=== PATIENT | male | born 1955 | race Caucasian/White ===

== ENCOUNTER 2018-12-17 10:26 | Inpatient (IN) | payer BC ==
[~2018-12-17] VITALS: Ht 180.3 cm; Wt 100.1 kg
[2018-12-17] VITALS (7 sets, daily range): BP systolic 102–136; BP diastolic 64–85
--- NOTE | 2018-12-17 10:43 | NUR ---
THIS IS A 62 YEAR ODL MALE WHO C/O OF LIGHTHEADNESS AND FEELING TIRED. SOB X 1. WAS AT URGENT CARE, HERE FOR A FIB, HX OF SD X 3 STENTS. PT PLACED ON VISITING NURSE, CONTINOUS SP02 AND CYCLE VS.
[2018-12-17] MEDS ORDERED: ASPI325T17 PO (10:46)
[2018-12-17] MEDS ORDERED: DILTIAZEM 125 MG in DEXTROSE 5% 100 ML IV SCH (11:24)
[2018-12-17] MEDS ORDERED: DILTIAZEM 5 MG/ML, 5ML IV ONE (11:30)
[2018-12-17] MEDS ORDERED: SODIUM CHLORIDE FLUSH 10ML SYR IVF ONE (11:30)
[2018-12-17 11:44] LABS: BASOPHILS # (AUTO) 0.07 x10^3/uL (0-0.1); BASOPHILS % (AUTO) 1 % (0-1); EOSINOPHILS # (AUTO) 0.06 x10^3/uL (0-0.4); EOSINOPHILS % (AUTO) 1 % (1-7); LYMPHOCYTES % (AUTO) 18 % (22-44); MD NO; MEAN CORPUSCULAR HEMOGLOBIN 28.6 pg (27.5-34.5); MEAN CORPUSCULAR HGB CONC 32.6 g/dL (33.2-36.2); MEAN PLATELET VOLUME 10.4 fL (7.4-10.4); MONOCYTES # (AUTO) 0.62 x10^3/uL (0.2-0.8); MONOCYTES % (AUTO) 7 % (2-9); NEUTROPHILS # (AUTO) 6.66 x10^3/uL (1.8-6.8); NEUTROPHILS % (AUTO) 74 % (42-75); PLATELET COUNT 198 x10^3/uL (130-400); RED BLOOD COUNT 5.59 x10^6/uL (4.38-5.82); RED CELL DISTRIBUTION WIDTH 14.5 % (9.4-14.8)
[2018-12-17 11:54] LABS: INTERNATIONAL NORMALIZED RATIO 1.16 (0.93-1.1); PROTHROMBIN TIME 12.1 Seconds (9.6-11.5)
[2018-12-17 11:56] LABS: ALBUMIN 3.7 g/dL (3.4-5.0); ANION GAP 7 mmol/L (5-15); CALCIUM 9.1 mg/dL (8.5-10.1); CHLORIDE 110 mmol/L (98-107)
[2018-12-17 11:59] LABS: ALANINE AMINOTRANSFERASE 27 U/L (12-78); CHOL/HDL RATIO 4.6; CHOLESTEROL, TOTAL 146 mg/dL (140-239); CREATININE 1.02 mg/dL (0.7-1.3); HDL CHOL % 22 % (26-37); HDL CHOLESTEROL (DIRECT) 32 mg/dL (40-60); LDL CHOLESTEROL,CALCULATED 99 mg/dL (54-169); LDL/HDL RATIO 3.1 (0.5-3.0); TOTAL PROTEIN 7.7 g/dL (6.4-8.2); TRIGLYCERIDES 77 mg/dL (50-200); TROPONIN I 0.025 ng/mL (0.000-0.045); VLDL CHOLESTEROL 15 mg/dL (0-25)
[2018-12-17] MEDS ORDERED: HEPARIN 25,000 UNITS/500ML PMX 500 ML IV PRN (12:00)
[2018-12-17] MEDS ORDERED: HEPARIN 5,000 UNITS/ML, 1ML IV ONE ×2 (12:00→16:00)
[2018-12-17] MEDS ORDERED: HEPARIN 5,000 UNITS/ML, 1ML IV PRN (12:00)
[2018-12-17 12:05] LABS: ALKALINE PHOSPHATASE 89 U/L (45-117)
[2018-12-17] MEDS ORDERED: HEPARIN 5,000 UNITS/ML, 1ML ONE (12:14)
[2018-12-17] MEDS ORDERED: DILTIAZEM 5 MG/ML, 10ML ONE (12:14)
[2018-12-17] MEDS ORDERED: HEPARIN 25,000 UNITS/500ML PMX 500 ML ONE (12:14)
--- NOTE | 2018-12-17 12:57 | NUR ---
REPORT TO MACK RODRIGUEZ, PLAN OF CARE DISCUSSED. PT WATCHING TV, DRINKING FLUID WELL
[2018-12-17] MEDS ORDERED: NITROGLYCERIN 0.4 MG/SPRAY ONE (13:44)
[2018-12-17] MEDS ORDERED: NITROGLYCERIN 0.4 MG BOTTLE (25 TABS) SL PRN (14:00)
[2018-12-17] MEDS: NITROGLYCERIN 0.4 MG/SPRAY SL PRN ×3 (14:12→14:25)
[2018-12-17 15:09] LABS: TROPONIN I 0.041 ng/mL (0.000-0.045)
[2018-12-17] MEDS ORDERED: ACETAMINOPHEN 325 MG TABLET PO PRN (15:30)
[2018-12-17] MEDS ORDERED: ONDANSETRON ODT 4 MG PO PRN (15:30)
[2018-12-17] MEDS ORDERED: ONDANSETRON 2MG/ML, 2ML IVPush PRN (15:30)
[2018-12-17] MEDS: DILTIAZEM 125 MG in SODIUM CHLORIDE 0.9% 100 ML IV SCH (16:09)
[2018-12-17] MEDS: METOPROLOL TARTRATE 25 MG TABLET PO SCH (17:56)
[2018-12-17 18:54] LABS: TROPONIN I 0.051 ng/mL (0.000-0.045)
[2018-12-17] MEDS: HEPARIN 5,000 UNITS/ML, 1ML IV PRN (19:18)
[2018-12-17] MEDS: MORPHINE SULFATE 4 MG/ML, 1ML IVPush PRN (20:14)
[2018-12-17] MEDS: ATORVASTATIN 40 MG TABLET PO SCH (20:14)
[2018-12-18] VITALS (8 sets, daily range): BP systolic 98–132; BP diastolic 58–83
[2018-12-18] MEDS: DILTIAZEM 125 MG in SODIUM CHLORIDE 0.9% 100 ML IV SCH ×2 (01:32→15:24)
[2018-12-18] MEDS ORDERED: ASPIRIN 325 MG TABLET EC ONE (02:09)
[2018-12-18] MEDS ORDERED: ASPIRIN 325 MG TABLET ONE (02:13)
[2018-12-18 05:09] LABS: BASOPHILS # (AUTO) 0.05 x10^3/uL (0-0.1); BASOPHILS % (AUTO) 1 % (0-1); EOSINOPHILS # (AUTO) 0.04 x10^3/uL (0-0.4); EOSINOPHILS % (AUTO) 0 % (1-7); LYMPHOCYTES # (AUTO) 1.29 x10^3/uL (1-3.4); LYMPHOCYTES % (AUTO) 13 % (22-44); MD NO; MEAN CORPUSCULAR HEMOGLOBIN 29.9 pg (27.5-34.5); MEAN CORPUSCULAR HGB CONC 33.6 g/dL (33.2-36.2); MEAN CORPUSCULAR VOLUME 88.9 fL (81-97); MEAN PLATELET VOLUME 11.2 fL (7.4-10.4); MONOCYTES % (AUTO) 6 % (2-9); NEUTROPHILS # (AUTO) 7.99 x10^3/uL (1.8-6.8); NEUTROPHILS % (AUTO) 80 % (42-75); PLATELET COUNT 171 x10^3/uL (130-400); RED CELL DISTRIBUTION WIDTH 14.8 % (9.4-14.8)
[2018-12-18 05:23] LABS: ALBUMIN 3.5 g/dL (3.4-5.0); ANION GAP 10 mmol/L (5-15); CHLORIDE 107 mmol/L (98-107)
[2018-12-18 05:29] LABS: ALANINE AMINOTRANSFERASE 43 U/L (12-78); ALKALINE PHOSPHATASE 94 U/L (45-117); BILIRUBIN,TOTAL 1.1 mg/dL (0.2-1.0); CHOL/HDL RATIO 4.3; CHOLESTEROL, TOTAL 129 mg/dL (140-239); CREATININE 1.56 mg/dL (0.7-1.3); HDL CHOL % 23 % (26-37); HDL CHOLESTEROL (DIRECT) 30 mg/dL (40-60); LDL CHOLESTEROL,CALCULATED 87 mg/dL (54-169); LDL/HDL RATIO 2.9 (0.5-3.0); TOTAL PROTEIN 7.5 g/dL (6.4-8.2); TRIGLYCERIDES 61 mg/dL (50-200); VLDL CHOLESTEROL 12 mg/dL (0-25)
[2018-12-18] MEDS: METOPROLOL TARTRATE 25 MG TABLET PO SCH ×2 (06:36→17:41)
[2018-12-18] MEDS ORDERED: REGADENOSON 0.4 MG/5 ML SYRINGE ONE (08:54)
[2018-12-18] MEDS ORDERED: ASPIRIN 325 MG TABLET PO SCH (09:00)
[2018-12-18] MEDS: MORPHINE SULFATE 4 MG/ML, 1ML IVPush PRN (12:26)
[2018-12-18] MEDS: HEPARIN 25,000 UNITS/500ML PMX 500 ML IV PRN (12:28)
[2018-12-18] MEDS ORDERED: SODIUM CHLORIDE 0.9% 1,000 ML IV SCH (15:00)
[2018-12-18] MEDS ORDERED: FUROSEMIDE 20 MG/2 ML IV ONE (16:00)
[2018-12-18] MEDS: ATORVASTATIN 40 MG TABLET PO SCH (20:38)
[2018-12-18] MEDS: CAPTOPRIL 12.5 MG TABLET PO SCH (20:39)
[2018-12-19 00:24] VITALS: BP 90/57
[2018-12-19] MEDS ORDERED: SODIUM CHLORIDE 0.9% 1,000 ML IV SCH ×2 (06:00→07:00)
[2018-12-19 06:16] VITALS: BP 104/57
[2018-12-19] MEDS: HEPARIN 5,000 UNITS/ML, 1ML IV PRN ×2 (06:19→20:20)
[2018-12-19] MEDS: METOPROLOL TARTRATE 25 MG TABLET PO SCH ×2 (06:19→18:09)
[2018-12-19 07:26] VITALS: BP 120/69
[2018-12-19] MEDS: ASPIRIN 81 MG TABLET EC PO SCH (07:54)
[2018-12-19] MEDS: CAPTOPRIL 12.5 MG TABLET PO SCH ×2 (07:55→20:21)
[2018-12-19] MEDS: MORPHINE SULFATE 4 MG/ML, 1ML IVPush PRN ×3 (08:10→22:27)
[2018-12-19] MEDS: HEPARIN 25,000 UNITS/500ML PMX 500 ML IV PRN (12:00)
[2018-12-19 12:35] VITALS: BP 110/76
[2018-12-19] MEDS ORDERED: MIDAZOLAM 1 MG/ML, 2ML ONE (14:21)
[2018-12-19] MEDS ORDERED: BIVALIRUDIN 250 MG ONE (14:21)
[2018-12-19] MEDS ORDERED: FENTANYL PF 100 MCG/2ML ONE (14:21)
[2018-12-19] MEDS ORDERED: VERAPAMIL 2.5 MG/ML, 2ML ONE (14:21)
[2018-12-19] MEDS ORDERED: HEPARIN 1,000 UNITS/ML, 10ML ONE (14:21)
[2018-12-19] MEDS ORDERED: LIDOCAINE-MPF 1%, 5ML ONE (14:22)
[2018-12-19] MEDS: DILTIAZEM 125 MG in SODIUM CHLORIDE 0.9% 100 ML IV SCH (17:55)
[2018-12-19 18:07] VITALS: BP 123/79
[2018-12-19 19:26] VITALS: BP 119/81
[2018-12-19] MEDS: ATORVASTATIN 40 MG TABLET PO SCH (20:20)
[2018-12-20 01:06] VITALS: BP 107/74
[2018-12-20] MEDS: MORPHINE SULFATE 4 MG/ML, 1ML IVPush PRN (01:34)
[2018-12-20 02:49] LABS: BASOPHILS # (AUTO) 0.04 x10^3/uL (0-0.1); BASOPHILS % (AUTO) 1 % (0-1); EOSINOPHILS # (AUTO) 0.18 x10^3/uL (0-0.4); EOSINOPHILS % (AUTO) 2 % (1-7); LYMPHOCYTES # (AUTO) 1.66 x10^3/uL (1-3.4); LYMPHOCYTES % (AUTO) 20 % (22-44); MD NO; MEAN CORPUSCULAR HEMOGLOBIN 28.8 pg (27.5-34.5); MEAN CORPUSCULAR HGB CONC 32.5 g/dL (33.2-36.2); MEAN CORPUSCULAR VOLUME 88.8 fL (81-97); MEAN PLATELET VOLUME 10.4 fL (7.4-10.4); MONOCYTES # (AUTO) 0.52 x10^3/uL (0.2-0.8); MONOCYTES % (AUTO) 6 % (2-9); NEUTROPHILS # (AUTO) 5.96 x10^3/uL (1.8-6.8); NEUTROPHILS % (AUTO) 71 % (42-75); PLATELET COUNT 148 x10^3/uL (130-400); RED BLOOD COUNT 5.09 x10^6/uL (4.38-5.82); RED CELL DISTRIBUTION WIDTH 14.8 % (9.4-14.8)
[2018-12-20 02:57] LABS: ANION GAP 5 mmol/L (5-15); CALCIUM 8.5 mg/dL (8.5-10.1); CHLORIDE 106 mmol/L (98-107)
[2018-12-20 02:58] LABS: CREATININE 0.95 mg/dL (0.7-1.3)
[2018-12-20] MEDS: METOPROLOL TARTRATE 25 MG TABLET PO SCH ×2 (05:42→16:34)
[2018-12-20] MEDS: HEPARIN 25,000 UNITS/500ML PMX 500 ML IV PRN (05:42)
[2018-12-20 07:14] VITALS: BP 110/62
[2018-12-20] MEDS: ASPIRIN 81 MG TABLET EC PO SCH (08:38)
[2018-12-20] MEDS: CAPTOPRIL 12.5 MG TABLET PO SCH ×2 (08:39→20:09)
[2018-12-20] MEDS: APIXABAN 5 MG TABLET PO SCH ×2 (09:50→20:09)
[2018-12-20] MEDS: DIGOXIN 0.125 MG TABLET PO SCH (09:50)
[2018-12-20 13:35] VITALS: BP 168/102
[2018-12-20 16:36] VITALS: BP 162/81
[2018-12-20 19:40] VITALS: BP 133/85
[2018-12-20] MEDS: ATORVASTATIN 40 MG TABLET PO SCH (20:09)
[2018-12-21 01:36] VITALS: BP 122/89
[2018-12-21] MEDS: MORPHINE SULFATE 4 MG/ML, 1ML IVPush PRN ×2 (02:16→06:30)
[2018-12-21] MEDS: METOPROLOL TARTRATE 25 MG TABLET PO SCH (05:26)
[2018-12-21 08:39] VITALS: BP 131/91
[2018-12-21] MEDS: ASPIRIN 81 MG TABLET EC PO SCH (08:43)
[2018-12-21] MEDS: APIXABAN 5 MG TABLET PO SCH (08:44)
[2018-12-21] MEDS: DIGOXIN 0.125 MG TABLET PO SCH (08:44)
[2018-12-21] MEDS: CAPTOPRIL 12.5 MG TABLET PO SCH (08:44)
[2018-12-21] MEDS ORDERED: ASPI81TA45 PO (11:39)
[2018-12-21] MEDS ORDERED: ATOR40TA78 PO (11:39)
[2018-12-21] MEDS ORDERED: CAPT12.52 PO (11:39)
[2018-12-21] MEDS ORDERED: DIGO125T PO (11:39)
[2018-12-21] MEDS ORDERED: METO25TA35 PO ×2 (11:39)
[2018-12-21] MEDS ORDERED: METO25TA91 PO (12:55)
[2018-12-21] MEDS ORDERED: SPIR25TA5 PO (12:56)
== END 2018-12-21 13:26 | disposition home or self-care (01) | DRG 286 ==
LOC: ED 12:12 → EDIP 12:14 → 5SO 13:25 → DCLOUNGE 12-21 13:05
PROVIDERS: ADMIT Hospitalist; ATTEND Hospitalist
PROC: 4A023N7 Measurement of Cardiac Sampling and Pressure, Left Heart, Percutaneous Approach (ICD-10-PCS; principal; 2018-12-19)
PROC: B2111ZZ Fluoroscopy of Multiple Coronary Arteries using Low Osmolar Contrast (ICD-10-PCS; 2018-12-19)
PROC: B2151ZZ Fluoroscopy of Left Heart using Low Osmolar Contrast (ICD-10-PCS; 2018-12-19)
DX: I25.110 Atherosclerotic heart disease of native coronary artery with unstable angina pectoris (principal); N17.0 Acute kidney failure with tubular necrosis; I50.41 Acute combined systolic (congestive) and diastolic (congestive) heart failure; D68.59 Other primary thrombophilia; I48.91 Unspecified atrial fibrillation; E66.9 Obesity, unspecified; Z68.30 Body mass index [BMI] 30.0-30.9, adult; E74.39 Other disorders of intestinal carbohydrate absorption; E78.5 Hyperlipidemia, unspecified; G47.00 Insomnia, unspecified; I25.5 Ischemic cardiomyopathy; Z79.82 Long term (current) use of aspirin; Z82.49 Family history of ischemic heart disease and other diseases of the circulatory system; Z87.442 Personal history of urinary calculi; Z87.891 Personal history of nicotine dependence; Z95.5 Presence of coronary angioplasty implant and graft
CPT/HCPCS: 36415; 71045; 78452; 80048; 80053; 80061; 82306; 83036; 83735; 83880; 84436; 84443; 84481; 84484; 85025; 85520; 85610; 93005; 93017; 93458; 93880; 96374; 96375; 99156; C1769; C1894; C8929; G0378; J0583; J1644; J2250; J2785; J3010; A9502; C9898; J1940; J7030; Q9967

== ENCOUNTER 2018-12-27 09:41 | Inpatient (IN) | payer BC ==
[2018-12-26 14:20] LABS: MICROSCOPIC AUTO
[2018-12-26 14:21] LABS: CULTURE INDICATED? NO
[2018-12-26 14:32] LABS: BASOPHILS % (AUTO) 0 % (0-1); EOSINOPHILS # (AUTO) 0.21 x10^3/uL (0-0.4); EOSINOPHILS % (AUTO) 2 % (1-7); LYMPHOCYTES # (AUTO) 1.68 x10^3/uL (1-3.4); LYMPHOCYTES % (AUTO) 17 % (22-44); MD NO; MEAN CORPUSCULAR HEMOGLOBIN 29.1 pg (27.5-34.5); MEAN CORPUSCULAR HGB CONC 33.1 g/dL (33.2-36.2); MEAN PLATELET VOLUME 9.6 fL (7.4-10.4); MONOCYTES # (AUTO) 0.64 x10^3/uL (0.2-0.8); MONOCYTES % (AUTO) 6 % (2-9); NEUTROPHILS # (AUTO) 7.46 x10^3/uL (1.8-6.8); NEUTROPHILS % (AUTO) 75 % (42-75); PLATELET COUNT 232 x10^3/uL (130-400); RED BLOOD COUNT 5.72 x10^6/uL (4.38-5.82); RED CELL DISTRIBUTION WIDTH 14.2 % (9.4-14.8)
[2018-12-26 14:40] LABS: ALBUMIN 3.6 g/dL (3.4-5.0); ANION GAP 5 mmol/L (5-15); CALCIUM 9.2 mg/dL (8.5-10.1); CHLORIDE 107 mmol/L (98-107)
[2018-12-26 14:44] LABS: ALANINE AMINOTRANSFERASE 68 U/L (12-78); ALKALINE PHOSPHATASE 119 U/L (45-117); BILIRUBIN,TOTAL 1.2 mg/dL (0.2-1.0); CREATININE 1.16 mg/dL (0.7-1.3); TOTAL PROTEIN 8.3 g/dL (6.4-8.2)
[2018-12-26 15:02] LABS: INTERNATIONAL NORMALIZED RATIO 1.13 (0.93-1.1); PROTHROMBIN TIME 11.8 Seconds (9.6-11.5)
[2018-12-26 15:23] LABS: HEMOGLOBIN A1C 5.9 % (4.2-6.3)
[~2018-12-27] VITALS: Ht 180.3 cm; Wt 98.1 kg
[2018-12-27] MEDS: DOCUSATE 100 MG CAPSULE PO SCH ×2 (09:00→20:29)
[~2018-12-27 09:41] MED LIST: ASPI325T17 PO; ASPI81TA45 PO; ATOR40TA78 PO; CAPT12.52 PO; DEXMEDETOMIDINE 200 MCG in SODIUM CHLORIDE 0.9% 48 ML IV SCH; DIGO125T PO; EPINEPHRINE 2 MG in SODIUM CHLORIDE 0.9% 248 ML IV SCH; METO25TA35 PO; METO25TA91 PO; METOPROLOL TARTRATE 25 MG TABLET PO ONE; SPIR25TA5 PO
[2018-12-27 09:53] VITALS: BP 128/84
[2018-12-27 09:54] VITALS: BP 137/85
[2018-12-27] MEDS ORDERED: INSULIN LISPRO 100 UNITS/ML, PEN SQ-INSULIN SCH (11:00)
[2018-12-27] MEDS ORDERED: CHLORHEXIDINE 15 ML UDC MM PRN (11:00)
[2018-12-27] MEDS: MUPIROCIN OINT 2%, 22GM TP SCH (11:27)
[2018-12-27] MEDS ORDERED: PAPAVERINE 30 MG/ML, 2ML ONE (12:18)
[2018-12-27] MEDS ORDERED: HEPARIN 1,000 UNITS/ML, 10ML ONE (12:19)
[2018-12-27] MEDS ORDERED: MIDAZOLAM 10MG/2 ML ONE (12:56)
[2018-12-27] MEDS ORDERED: FENTANYL PF 250 MCG/5ML ONE ×4 (12:57)
[2018-12-27] MEDS ORDERED: REGULAR INSULIN 62.5 UNITS in SODIUM CHLORIDE 0.9% 249.375 ML IV PRN (13:30)
[2018-12-27] MEDS ORDERED: VANCOMYCIN 1,500 MG in SODIUM CHLORIDE 0.9% 250 ML IV PRN (13:30)
[2018-12-27] MEDS ORDERED: MANNITOL PMX 20% 500 ML IVPB PRN (13:30)
[2018-12-27] MEDS ORDERED: ALBUMIN HUMAN 5% 500 ML IV PRN (13:30)
[2018-12-27] MEDS ORDERED: PHENYLEPHRINE 10 MG in SODIUM CHLORIDE 0.9% 249 ML IV PRN ×2 (13:30→17:46)
[2018-12-27] MEDS ORDERED: DEXMEDETOMIDINE 200 MCG in SODIUM CHLORIDE 0.9% 48 ML IV SCH (13:30)
[2018-12-27] MEDS ORDERED: CEFUROXIME 1.5 GM in SODIUM CHLORIDE 0.9% 50 ML IVPB PRN (13:30)
[2018-12-27] MEDS ORDERED: POTASSIUM CHLORIDE 80 MEQ, SODIUM BICARBONATE 8.4% 10 MEQ, MAGNESIUM SULFATE 0.5 GM, LI... IV PRN (13:30)
[2018-12-27] MEDS ORDERED: PAPAVERINE 30 MG/ML, 2ML IVPush ONE (14:27)
[2018-12-27] MEDS ORDERED: HEPARIN 1,000 UNITS/ML, 10ML IV ONE (14:28)
[2018-12-27] MEDS ORDERED: PROTAMINE SULFATE 10 MG/ML, 25ML ONE ×2 (15:52)
[2018-12-27] MEDS ORDERED: PROPOFOL 10 MG/ML, 20ML ONE (15:52)
[2018-12-27] MEDS ORDERED: AMINOCAPROIC ACID 250 MG/ML, 20ML ONE ×2 (15:52)
[2018-12-27] MEDS ORDERED: ROCURONIUM 10MG/ML,5ML ONE ×2 (15:52)
[2018-12-27] MEDS ORDERED: CALCIUM CHLORIDE 10%, 10ML SYR ONE (16:58)
[2018-12-27] MEDS ORDERED: VASOPRESSIN 50 UNIT in SODIUM CHLORIDE 0.9% 247.5 ML IV PRN (17:46)
[2018-12-27] MEDS ORDERED: SODIUM CHLORIDE 0.9% 1,000 ML IV PRN (17:46)
[2018-12-27] MEDS ORDERED: DEXMEDETOMIDINE 200 MCG in SODIUM CHLORIDE 0.9% 48 ML IV PRN (17:46)
[2018-12-27] MEDS ORDERED: HEPARIN 1,000 UNITS/ML, 30ML ONE (17:56)
[2018-12-27] MEDS ORDERED: LIDOCAINE 2% 100MG/5ML SYRINGE ONE (17:56)
[2018-12-27] MEDS ORDERED: SODIUM BICARBONATE 1 MEQ/ML, 50ML VIAL ONE ×2 (17:56→18:43)
[2018-12-27] MEDS ORDERED: ALBUMIN HUMAN 25% 50 ML ONE (17:56)
[2018-12-27] MEDS ORDERED: EPINEPHRINE 2 MG in SODIUM CHLORIDE 0.9% 248 ML IV PRN (18:00)
[2018-12-27] MEDS ORDERED: INSULIN REGULAR 100 UNITS/ML, 3ML VIAL IVPush PRN (18:00)
[2018-12-27] MEDS ORDERED: HYDROcodone/APAP 5/325 TABLET PO PRN (18:00)
[2018-12-27] MEDS ORDERED: DEXTROSE 50%, 50ML SYRINGE IVPush PRN (18:00)
[2018-12-27] MEDS: KSCALE TO 4.5 IV SCH (18:00)
[2018-12-27] MEDS ORDERED: ACETAMINOPHEN 650 MG SUPP PR PRN (18:00)
[2018-12-27] MEDS ORDERED: BISACODYL 10 MG SUPP PR PRN (18:00)
[2018-12-27] MEDS ORDERED: DEXTROSE 4 GM TAB.CHEW PO PRN (18:00)
[2018-12-27] MEDS ORDERED: ACETAMINOPHEN 325 MG TABLET PO PRN (18:00)
[2018-12-27] MEDS ORDERED: LACTATED RINGERS 1,000 ML IV PRN (18:00)
[2018-12-27] MEDS ORDERED: PROCHLORPERAZINE 5 MG/ML, 2ML IVPush PRN (18:00)
[2018-12-27] MEDS ORDERED: BISACODYL 5 MG EC TABLET PO PRN (18:00)
[2018-12-27] MEDS ORDERED: GLUCAGON 1 MG IM PRN (18:00)
[2018-12-27 18:25] LABS: GLUCOSE BY BLOOD GAS ANALYZER 228 mg/dL (70-110); HEMOGLOBIN BY BLOOD GAS ANALYZ 15.3 g/dL (14.0-18.0); POTASSIUM BY BLOOD GAS ANALYZR 3.5 mmol/L (3.6-5.5)
[2018-12-27 18:37] LABS: INTERNATIONAL NORMALIZED RATIO 1.36 (0.93-1.1); PROTHROMBIN TIME 14.1 Seconds (9.6-11.5)
[2018-12-27] MEDS: SODIUM BICARB 8.4%, 50ML SYRINGE IV PRN ×3 (18:54→21:57)
[2018-12-27] MEDS ORDERED: POTASSIUM CHLORIDE PMX 100 ML IV ONE (19:30)
[2018-12-27] MEDS ORDERED: MIDAZOLAM 1 MG/ML, 2ML ONE (20:06)
[2018-12-27] MEDS ORDERED: MORPHINE SULFATE 4 MG/ML, 1ML ONE (20:07)
[2018-12-27] MEDS: MAGNESIUM SULFATE 1 GM in SODIUM CHLORIDE 0.9% 50 ML IVPB SCH (20:27)
[2018-12-27] MEDS: SODIUM CHLORIDE FLUSH 10ML SYR IVF SCH ×2 (20:28)
[2018-12-27] MEDS: MUPIROCIN OINT 2%, 22GM NAS SCH (20:29)
[2018-12-27] MEDS: INSULIN LISPRO 100 UNITS/ML, PEN SQ-INSULIN SCH (20:30)
[2018-12-27] MEDS: morphine SULFATE 10 MG/ML, 1ML IVPush PRN (20:39)
[2018-12-27] MEDS: MIDAZOLAM 1 MG/ML, 5ML IVPush PRN (20:40)
[2018-12-27] MEDS ORDERED: PROPOFOL 100 ML IV ONE (21:49)
[2018-12-27] MEDS: PROPOFOL 100 ML IV PRN (21:57)
[2018-12-27] MEDS ORDERED: FENTANYL PF 100 MCG/2ML IVPush PRN (22:00)
[2018-12-27] MEDS ORDERED: PHARMACY MAY ADJ FOR RENAL FX MC SCH (22:00)
[2018-12-27] MEDS ORDERED: LIDOCAINE-MPF 1%, 2ML ENDO PRN (22:00)
[2018-12-27] MEDS: ALBUTEROL/IPRATROPIUM 2.5MG/0.5MG, 3 ML INLINE SCH (22:27)
[2018-12-27] MEDS: EPINEPHRINE 8 MG in SODIUM CHLORIDE 0.9% 242 ML IV PRN (22:40)
[2018-12-27] MEDS: CEFUROXIME 1.5 GM in SODIUM CHLORIDE 0.9% 50 ML IVPB SCH (23:52)
[2018-12-28] MEDS: VANCOMYCIN 1,500 MG in SODIUM CHLORIDE 0.9% 250 ML IVPB SCH ×2 (00:42→12:55)
[2018-12-28] MEDS ORDERED: POTASSIUM CHLORIDE 30 MEQ in SODIUM CHLORIDE 0.9% 100 ML IV ONE (01:30)
[2018-12-28] MEDS: SODIUM BICARB 8.4%, 50ML SYRINGE IV PRN (01:37)
[2018-12-28] MEDS: PROPOFOL 100 ML IV PRN ×4 (01:37→20:46)
[2018-12-28] MEDS: ALBUTEROL/IPRATROPIUM 2.5MG/0.5MG, 3 ML INLINE SCH ×5 (02:57→22:58)
[2018-12-28] MEDS: REGULAR INSULIN 62.5 UNITS in SODIUM CHLORIDE 0.9% 249.375 ML IV PRN ×2 (03:52→11:07)
[2018-12-28] MEDS: DOBUTAMINE 250 MG in SODIUM CHLORIDE 0.9% 230 ML IV PRN ×3 (03:53→21:48)
[2018-12-28] MEDS ORDERED: FUROSEMIDE 20 MG/2 ML IV ONE (04:00)
[2018-12-28] MEDS ORDERED: ROCURONIUM 10 MG/ML,10ML ONE (05:00)
[2018-12-28] MEDS ORDERED: EPINEPHRINE 1 MG/ML, 1ML ONE (05:00)
[2018-12-28] MEDS ORDERED: PROPOFOL 10 MG/ML, 20ML ONE (05:00)
[2018-12-28] MEDS ORDERED: CEFAZOLIN 1,000 MG ONE (05:00)
[2018-12-28 05:24] LABS: BASOPHILS # (AUTO) 0.06 x10^3/uL (0-0.1); BASOPHILS % (AUTO) 0 % (0-1); EOSINOPHILS % (AUTO) 0 % (1-7); LYMPHOCYTES # (AUTO) 0.74 x10^3/uL (1-3.4); LYMPHOCYTES % (AUTO) 5 % (22-44); MD NO; MEAN CORPUSCULAR HEMOGLOBIN 28.7 pg (27.5-34.5); MEAN CORPUSCULAR HGB CONC 32.5 g/dL (33.2-36.2); MEAN CORPUSCULAR VOLUME 88.2 fL (81-97); MEAN PLATELET VOLUME 10.2 fL (7.4-10.4); MONOCYTES % (AUTO) 5 % (2-9); NEUTROPHILS % (AUTO) 90 % (42-75); PLATELET COUNT 197 x10^3/uL (130-400); RED BLOOD COUNT 5.05 x10^6/uL (4.38-5.82); RED CELL DISTRIBUTION WIDTH 14.3 % (9.4-14.8)
[2018-12-28 05:40] LABS: ALANINE AMINOTRANSFERASE 65 U/L (12-78); ALBUMIN 2.7 g/dL (3.4-5.0); ANION GAP 12 mmol/L (5-15); CALCIUM 8.1 mg/dL (8.5-10.1); CHLORIDE 113 mmol/L (98-107); CREATININE 1.38 mg/dL (0.7-1.3)
[2018-12-28 05:43] LABS: ALKALINE PHOSPHATASE 88 U/L (45-117); BILIRUBIN,TOTAL 0.6 mg/dL (0.2-1.0); TOTAL PROTEIN 6.1 g/dL (6.4-8.2)
[2018-12-28] MEDS: KSCALE TO 4.5 IV SCH ×5 (06:00→19:32)
[2018-12-28 06:26] VITALS: BP 114/29
[2018-12-28] MEDS: INSULIN LISPRO 100 UNITS/ML, PEN SQ-INSULIN SCH ×5 (07:00→20:43)
[2018-12-28] MEDS: SODIUM CHLORIDE FLUSH 10ML SYR IVF SCH ×4 (07:37→19:32)
[2018-12-28] MEDS: DOCUSATE 100 MG CAPSULE PO SCH ×2 (09:00→20:35)
[2018-12-28] MEDS: METOPROLOL TARTRATE 25 MG TABLET PO/NG SCH ×2 (09:00→20:39)
[2018-12-28] MEDS: ASPIRIN 81 MG TABLET EC PO SCH (09:00)
[2018-12-28] MEDS: MUPIROCIN OINT 2%, 22GM TP SCH (09:00)
[2018-12-28] MEDS: MUPIROCIN OINT 2%, 22GM NAS SCH ×2 (09:43→20:39)
[2018-12-28] MEDS: CEFUROXIME 1.5 GM in SODIUM CHLORIDE 0.9% 50 ML IVPB SCH (11:06)
[2018-12-28] MEDS ORDERED: POTASSIUM CHLORIDE PMX 100 ML IV ONE ×2 (13:00)
[2018-12-28] MEDS: EPINEPHRINE 8 MG in SODIUM CHLORIDE 0.9% 242 ML IV PRN (13:59)
[2018-12-28] MEDS: MAGNESIUM SULFATE 1 GM in SODIUM CHLORIDE 0.9% 50 ML IVPB SCH (17:09)
[2018-12-28] MEDS: morphine SULFATE 10 MG/ML, 1ML IVPush PRN (18:04)
[2018-12-28] MEDS: CHLORHEXIDINE 15 ML UDC MM SCH (20:39)
[2018-12-28] MEDS ORDERED: FILTER 0.22 MICRON IV ONE (23:45)
[2018-12-29] MEDS ORDERED: AMIODARONE 150 MG in DEXTROSE 5% 100 ML IV ONE ×4 (01:00→21:30)
[2018-12-29] MEDS: AMIODARONE 900 MG in DEXTROSE 5% 482 ML IV PRN ×2 (01:03→19:42)
[2018-12-29] MEDS: FILTER 0.22 MICRON IV PRN ×2 (01:03→08:08)
[2018-12-29 01:13] LABS: MEAN CORPUSCULAR HEMOGLOBIN 29.5 pg (27.5-34.5); MEAN CORPUSCULAR HGB CONC 33.5 g/dL (33.2-36.2); MEAN PLATELET VOLUME 10.1 fL (7.4-10.4); PLATELET COUNT 164 x10^3/uL (130-400); RED BLOOD COUNT 4.73 x10^6/uL (4.38-5.82); RED CELL DISTRIBUTION WIDTH 14.8 % (9.4-14.8)
[2018-12-29 01:19] LABS: ANION GAP 5 mmol/L (5-15); CALCIUM 7.9 mg/dL (8.5-10.1); CHLORIDE 116 mmol/L (98-107); CREATININE 0.85 mg/dL (0.7-1.3)
[2018-12-29 01:25] LABS: MD YES
[2018-12-29 01:26] LABS: <PLATELET ESTIMATE> ADEQUATE; <RBC MORPHOLOGY> NORMAL; BANDS%(MANUAL) 1 % (0-7); LYMPHS% (MANUAL) 4 % (22-44); MONOS#(MANUAL) 1.21 x10^3/uL (0.3-2.7); MONOS% (MANUAL) 6 % (2-9); PMNS WITH VACUOLES 1+; SEG#(MANUAL) 17.89 x10^3/uL (1.8-6.8); SEGS% (MANUAL) 89 % (42-75)
[2018-12-29 01:27] LABS: <PLT MORPHOLOGY> NORMAL PLT MORPH
[2018-12-29] MEDS: KSCALE TO 4.5 IV SCH ×4 (01:42→20:11)
[2018-12-29] MEDS: ALBUTEROL/IPRATROPIUM 2.5MG/0.5MG, 3 ML INLINE SCH ×6 (02:11→23:00)
[2018-12-29] MEDS ORDERED: ALBUMIN HUMAN 5% 500 ML IV ONE (03:00)
[2018-12-29] MEDS ORDERED: MORPHINE SULFATE 4 MG/ML, 1ML ONE (03:58)
[2018-12-29] MEDS: morphine SULFATE 10 MG/ML, 1ML IVPush PRN (04:02)
[2018-12-29] MEDS: EPINEPHRINE 8 MG in SODIUM CHLORIDE 0.9% 242 ML IV PRN ×2 (04:08→08:15)
[2018-12-29] MEDS: PROPOFOL 100 ML IV PRN ×3 (04:08→21:31)
[2018-12-29 04:42] VITALS: BP 133/64
[2018-12-29] MEDS ORDERED: FUROSEMIDE 20 MG/2 ML IV ONE (06:00)
[2018-12-29] MEDS: ASPIRIN 81 MG TABLET EC PO SCH (07:57)
[2018-12-29] MEDS: DOCUSATE 100 MG CAPSULE PO SCH ×2 (07:57→20:12)
[2018-12-29] MEDS: METOPROLOL TARTRATE 25 MG TABLET PO/NG SCH ×2 (07:58→20:12)
[2018-12-29] MEDS: SODIUM CHLORIDE FLUSH 10ML SYR IVF SCH ×4 (08:11→20:12)
[2018-12-29] MEDS: ENOXAPARIN 40 MG/0.4 ML SQ SCH (08:12)
[2018-12-29] MEDS: CHLORHEXIDINE 15 ML UDC MM SCH ×2 (08:13→20:13)
[2018-12-29] MEDS: MUPIROCIN OINT 2%, 22GM NAS SCH ×2 (08:13→20:13)
[2018-12-29] MEDS: INSULIN LISPRO 100 UNITS/ML, PEN SQ-INSULIN SCH ×3 (08:13→20:12)
[2018-12-29] MEDS: REGULAR INSULIN 62.5 UNITS in SODIUM CHLORIDE 0.9% 249.375 ML IV PRN (08:16)
[2018-12-29] MEDS: DOBUTAMINE 250 MG in SODIUM CHLORIDE 0.9% 230 ML IV PRN ×3 (08:17→22:52)
[2018-12-29] MEDS ORDERED: HEPARIN 25,000 UNITS/500ML PMX 500 ML IV PRN (08:30)
[2018-12-29] MEDS ORDERED: HEPARIN 5,000 UNITS/ML, 1ML IV ONE (08:30)
[2018-12-29] MEDS: SODIUM CHLORIDE 0.9% IV PRN ×2 (09:27→17:59)
[2018-12-29] MEDS: MILRINONE IV PRN ×2 (09:27→17:59)
[2018-12-29] MEDS ORDERED: HEPARIN 1,000 UNITS/ML, 10ML ONE (11:35)
[2018-12-29] MEDS ORDERED: HEPARIN 25,000 UNITS in DEXTROSE 5% 500 ML IV SCH (11:59)
[2018-12-29 12:35] LABS: PLATELET COUNT 108 x10^3/uL (130-400)
[2018-12-29 12:47] LABS: ANION GAP 6 mmol/L (5-15); CALCIUM 8.2 mg/dL (8.5-10.1); CHLORIDE 115 mmol/L (98-107)
[2018-12-29 13:14] LABS: INTERNATIONAL NORMALIZED RATIO 1.15 (0.93-1.1)
[2018-12-29 13:21] LABS: PARTIAL THROMBOPLASTIN TIME > 153 Seconds (25-31)
[2018-12-29] MEDS: HEPARIN 25,000 UNITS/500ML PMX 500 ML IV SCH (15:19)
[2018-12-29] MEDS ORDERED: FUROSEMIDE 40 MG/4 ML IV ONE (18:30)
[2018-12-29] MEDS: MAGNESIUM SULFATE 1 GM in SODIUM CHLORIDE 0.9% 50 ML IVPB SCH (18:41)
[2018-12-29] MEDS ORDERED: POTASSIUM CHLORIDE PMX 100 ML IV ONE (20:00)
[2018-12-29] MEDS ORDERED: DIGOXIN 0.25 MG/ML, 2ML IVPush ONE ×2 (21:30→22:15)
[2018-12-30] MEDS ORDERED: DIGOXIN 0.25 MG/ML, 2ML IVPush ONE ×2 (01:00→10:30)
[2018-12-30] MEDS: MILRINONE IV PRN ×2 (01:20→20:08)
[2018-12-30] MEDS: SODIUM CHLORIDE 0.9% IV PRN ×2 (01:20→20:08)
[2018-12-30 01:36] LABS: MEAN CORPUSCULAR HEMOGLOBIN 29.8 pg (27.5-34.5); MEAN CORPUSCULAR HGB CONC 33.8 g/dL (33.2-36.2); MEAN PLATELET VOLUME 10.8 fL (7.4-10.4); PLATELET COUNT 103 x10^3/uL (130-400); RED BLOOD COUNT 3.83 x10^6/uL (4.38-5.82); RED CELL DISTRIBUTION WIDTH 14.4 % (9.4-14.8)
[2018-12-30 01:46] LABS: ANION GAP 5 mmol/L (5-15); CALCIUM 7.8 mg/dL (8.5-10.1); CHLORIDE 115 mmol/L (98-107); CREATININE 0.94 mg/dL (0.7-1.3); TRIGLYCERIDES 88 mg/dL (50-200)
[2018-12-30 01:54] LABS: BASOPHILS # (AUTO) 0.05 x10^3/uL (0-0.1); BASOPHILS % (AUTO) 0 % (0-1); EOSINOPHILS # (AUTO) 0.01 x10^3/uL (0-0.4); EOSINOPHILS % (AUTO) 0 % (1-7); LYMPHOCYTES # (AUTO) 0.97 x10^3/uL (1-3.4); LYMPHOCYTES % (AUTO) 7 % (22-44); MD NO; MONOCYTES # (AUTO) 0.66 x10^3/uL (0.2-0.8); MONOCYTES % (AUTO) 5 % (2-9); NEUTROPHILS # (AUTO) 12.16 x10^3/uL (1.8-6.8); NEUTROPHILS % (AUTO) 88 % (42-75)
[2018-12-30] MEDS: PROPOFOL 100 ML IV PRN ×3 (02:36→20:07)
[2018-12-30] MEDS: KSCALE TO 4.5 IV SCH ×2 (02:36→07:00)
[2018-12-30] MEDS: INSULIN LISPRO 100 UNITS/ML, PEN SQ-INSULIN SCH ×4 (02:38→21:00)
[2018-12-30] MEDS: ALBUTEROL/IPRATROPIUM 2.5MG/0.5MG, 3 ML INLINE SCH ×6 (03:00→22:12)
[2018-12-30] MEDS: DOBUTAMINE 250 MG in SODIUM CHLORIDE 0.9% 230 ML IV PRN ×3 (05:25→20:09)
[2018-12-30] MEDS: SODIUM CHLORIDE FLUSH 10ML SYR IVF SCH ×4 (08:20→21:44)
[2018-12-30] MEDS: DOCUSATE 100 MG CAPSULE PO SCH ×2 (08:20→21:00)
[2018-12-30] MEDS: ENOXAPARIN 40 MG/0.4 ML SQ SCH (08:22)
[2018-12-30] MEDS: ASPIRIN 81 MG TABLET EC PO SCH (09:00)
[2018-12-30] MEDS: CLOPIDOGREL 75 MG TABLET PO SCH (09:00)
[2018-12-30] MEDS ORDERED: FUROSEMIDE 40 MG/4 ML IV ONE (09:00)
[2018-12-30] MEDS: METOPROLOL TARTRATE 25 MG TABLET PO/NG SCH ×2 (09:00→21:00)
[2018-12-30] MEDS: MUPIROCIN OINT 2%, 22GM NAS SCH ×2 (09:31→21:00)
[2018-12-30] MEDS: CHLORHEXIDINE 15 ML UDC MM SCH (09:31)
[2018-12-30] MEDS ORDERED: ALBUMIN HUMAN 5% 500 ML IV ONE ×2 (11:30→19:30)
[2018-12-30] MEDS: AMIODARONE 900 MG in DEXTROSE 5% 482 ML IV PRN (12:03)
[2018-12-30] MEDS: morphine SULFATE 10 MG/ML, 1ML IVPush PRN (17:08)
[2018-12-31] MEDS: ALBUTEROL/IPRATROPIUM 2.5MG/0.5MG, 3 ML INLINE SCH ×6 (02:08→22:10)
[2018-12-31 04:17] LABS: MEAN CORPUSCULAR HEMOGLOBIN 29.5 pg (27.5-34.5); MEAN CORPUSCULAR HGB CONC 33.6 g/dL (33.2-36.2); MEAN CORPUSCULAR VOLUME 87.9 fL (81-97); MEAN PLATELET VOLUME 10.1 fL (7.4-10.4); PLATELET COUNT 95 x10^3/uL (130-400); RED BLOOD COUNT 3.42 x10^6/uL (4.38-5.82); RED CELL DISTRIBUTION WIDTH 14.4 % (9.4-14.8)
[2018-12-31 04:26] LABS: ANION GAP 4 mmol/L (5-15); CALCIUM 7.6 mg/dL (8.5-10.1); CHLORIDE 111 mmol/L (98-107)
[2018-12-31 04:31] LABS: CREATININE 0.89 mg/dL (0.7-1.3)
[2018-12-31] MEDS: MILRINONE IV PRN (05:24)
[2018-12-31] MEDS: SODIUM CHLORIDE 0.9% IV PRN (05:24)
[2018-12-31] MEDS: PROPOFOL 100 ML IV PRN ×3 (05:43→21:26)
[2018-12-31] MEDS: DOBUTAMINE 250 MG in SODIUM CHLORIDE 0.9% 230 ML IV PRN ×2 (05:44→14:47)
[2018-12-31 05:57] LABS: BASOPHILS # (AUTO) 0.01 x10^3/uL (0-0.1); BASOPHILS % (AUTO) 0 % (0-1); EOSINOPHILS # (AUTO) 0.08 x10^3/uL (0-0.4); EOSINOPHILS % (AUTO) 1 % (1-7); LYMPHOCYTES # (AUTO) 0.97 x10^3/uL (1-3.4); LYMPHOCYTES % (AUTO) 8 % (22-44); MD SCAN; MONOCYTES # (AUTO) 0.61 x10^3/uL (0.2-0.8); MONOCYTES % (AUTO) 5 % (2-9); NEUTROPHILS % (AUTO) 86 % (42-75)
[2018-12-31] MEDS: INSULIN LISPRO 100 UNITS/ML, PEN SQ-INSULIN SCH ×4 (07:00→21:00)
[2018-12-31] MEDS ORDERED: FUROSEMIDE 40 MG/4 ML IV ONE ×2 (07:30→14:00)
[2018-12-31] MEDS: DIGOXIN 0.25 MG/ML, 2ML IVPush SCH (08:09)
[2018-12-31] MEDS: morphine SULFATE 10 MG/ML, 1ML IVPush PRN (08:09)
[2018-12-31] MEDS: SODIUM CHLORIDE FLUSH 10ML SYR IVF SCH ×4 (08:10→21:00)
[2018-12-31] MEDS: MUPIROCIN OINT 2%, 22GM NAS SCH ×2 (08:10→21:26)
[2018-12-31] MEDS: DOCUSATE 100 MG CAPSULE PO SCH ×2 (08:52→21:00)
[2018-12-31] MEDS: ENOXAPARIN 40 MG/0.4 ML SQ SCH (08:52)
[2018-12-31] MEDS: CLOPIDOGREL 75 MG TABLET PO SCH (09:00)
[2018-12-31] MEDS: METOPROLOL TARTRATE 25 MG TABLET PO/NG SCH ×2 (09:00→21:00)
[2018-12-31] MEDS: ASPIRIN 81 MG TABLET EC PO SCH (09:00)
[2018-12-31] MEDS: FAMOTIDINE 20 MG/2 ML IVPush SCH ×2 (09:44→21:29)
[2018-12-31] MEDS: ASPIRIN 81 MG TABLET CHEW PO SCH (09:44)
[2018-12-31] MEDS ORDERED: NITROGLYCERIN/D5W PMX 250 ML IV PRN (19:00)
[2018-12-31] MEDS: NITROGLYCERIN/D5W PMX 250 ML IV PRN (19:32)
[2019-01-01] MEDS: DOBUTAMINE/D5W PMX 250 ML IV PRN ×2 (00:12→16:55)
[2019-01-01] MEDS: ALBUTEROL/IPRATROPIUM 2.5MG/0.5MG, 3 ML INLINE SCH ×6 (02:00→21:58)
[2019-01-01] MEDS: INSULIN LISPRO 100 UNITS/ML, PEN SQ-INSULIN SCH ×7 (03:00→23:00)
[2019-01-01] MEDS: PROPOFOL 100 ML IV PRN ×3 (03:40→16:54)
[2019-01-01] MEDS: AMIODARONE 900 MG in DEXTROSE 5% 482 ML IV PRN (03:41)
[2019-01-01 04:22] LABS: MEAN CORPUSCULAR HEMOGLOBIN 29.9 pg (27.5-34.5); MEAN CORPUSCULAR HGB CONC 34.2 g/dL (33.2-36.2); MEAN CORPUSCULAR VOLUME 87.4 fL (81-97); MEAN PLATELET VOLUME 10.1 fL (7.4-10.4); PLATELET COUNT 93 x10^3/uL (130-400); RED BLOOD COUNT 3.08 x10^6/uL (4.38-5.82); RED CELL DISTRIBUTION WIDTH 14.4 % (9.4-14.8)
[2019-01-01 04:31] LABS: ANION GAP 5 mmol/L (5-15); CALCIUM 7.5 mg/dL (8.5-10.1); CHLORIDE 107 mmol/L (98-107); CREATININE 0.78 mg/dL (0.7-1.3)
[2019-01-01 04:43] LABS: BASOPHILS # (AUTO) 0.05 x10^3/uL (0-0.1); BASOPHILS % (AUTO) 1 % (0-1); EOSINOPHILS # (AUTO) 0.12 x10^3/uL (0-0.4); EOSINOPHILS % (AUTO) 1 % (1-7); LYMPHOCYTES # (AUTO) 0.96 x10^3/uL (1-3.4); LYMPHOCYTES % (AUTO) 11 % (22-44); MD SCAN; MONOCYTES # (AUTO) 0.49 x10^3/uL (0.2-0.8); MONOCYTES % (AUTO) 6 % (2-9); NEUTROPHILS # (AUTO) 7.01 x10^3/uL (1.8-6.8); NEUTROPHILS % (AUTO) 81 % (42-75)
[2019-01-01] MEDS: HEPARIN 25,000 UNITS/500ML PMX 500 ML IV SCH (05:05)
[2019-01-01] MEDS: NITROGLYCERIN/D5W PMX 250 ML IV PRN (06:56)
[2019-01-01] MEDS: SODIUM CHLORIDE FLUSH 10ML SYR IVF SCH ×4 (08:17→22:03)
[2019-01-01] MEDS: ASPIRIN 81 MG TABLET CHEW PO SCH (08:58)
[2019-01-01] MEDS: DIGOXIN 0.25 MG/ML, 2ML IVPush SCH (08:58)
[2019-01-01] MEDS: FAMOTIDINE 20 MG/2 ML IVPush SCH ×2 (08:59→22:03)
[2019-01-01] MEDS: CLOPIDOGREL 75 MG TABLET PO SCH (08:59)
[2019-01-01] MEDS: MUPIROCIN OINT 2%, 22GM NAS SCH (08:59)
[2019-01-01] MEDS: METOPROLOL TARTRATE 25 MG TABLET PO/NG SCH ×2 (08:59→19:31)
[2019-01-01] MEDS: DOCUSATE 100 MG CAPSULE PO SCH ×2 (08:59→19:30)
[2019-01-01] MEDS: NITROPRUSSIDE 50 MG in SODIUM CHLORIDE 0.9% 248 ML IV PRN ×2 (09:30→20:46)
[2019-01-01 10:32] LABS: HIT RESULT NEGATIVE (NEGATIVE)
[2019-01-02] MEDS: NITROPRUSSIDE 50 MG in SODIUM CHLORIDE 0.9% 248 ML IV PRN (00:45)
[2019-01-02] MEDS: DOBUTAMINE/D5W PMX 250 ML IV PRN ×2 (00:45→20:40)
[2019-01-02] MEDS: ALBUTEROL/IPRATROPIUM 2.5MG/0.5MG, 3 ML INLINE SCH ×6 (02:07→22:07)
[2019-01-02] MEDS: PROPOFOL 100 ML IV PRN ×2 (02:40→21:33)
[2019-01-02] MEDS: HEPARIN 25,000 UNITS/500ML PMX 500 ML IV SCH ×2 (02:55→20:51)
[2019-01-02] MEDS: INSULIN LISPRO 100 UNITS/ML, PEN SQ-INSULIN SCH ×6 (03:00→23:00)
[2019-01-02 04:21] LABS: MEAN CORPUSCULAR HEMOGLOBIN 28.7 pg (27.5-34.5); MEAN CORPUSCULAR HGB CONC 32.8 g/dL (33.2-36.2); MEAN CORPUSCULAR VOLUME 87.6 fL (81-97); MEAN PLATELET VOLUME 10.4 fL (7.4-10.4); PLATELET COUNT 99 x10^3/uL (130-400); RED BLOOD COUNT 3.17 x10^6/uL (4.38-5.82); RED CELL DISTRIBUTION WIDTH 14.7 % (9.4-14.8)
[2019-01-02 04:34] LABS: CALCIUM 7.8 mg/dL (8.5-10.1); CREATININE 0.81 mg/dL (0.7-1.3)
[2019-01-02 04:39] LABS: TRIGLYCERIDES 102 mg/dL (50-200)
[2019-01-02 04:42] LABS: ANION GAP 6 mmol/L (5-15); CHLORIDE 107 mmol/L (98-107)
[2019-01-02 05:17] LABS: BASOPHILS # (AUTO) 0.02 x10^3/uL (0-0.1); BASOPHILS % (AUTO) 0 % (0-1); EOSINOPHILS # (AUTO) 0.17 x10^3/uL (0-0.4); EOSINOPHILS % (AUTO) 2 % (1-7); LYMPHOCYTES # (AUTO) 0.83 x10^3/uL (1-3.4); LYMPHOCYTES % (AUTO) 9 % (22-44); MD SCAN; MONOCYTES # (AUTO) 0.52 x10^3/uL (0.2-0.8); MONOCYTES % (AUTO) 6 % (2-9); NEUTROPHILS % (AUTO) 83 % (42-75)
[2019-01-02] MEDS ORDERED: CALCIUM CHLORIDE 13.6 MEQ in SODIUM CHLORIDE 0.9% 100 ML IV ONE (07:00)
[2019-01-02] MEDS ORDERED: DOCUSATE 50 MG/5 ML, 10ML UDC ONE (08:48)
[2019-01-02] MEDS: FAMOTIDINE 20 MG/2 ML IVPush SCH ×2 (08:50→21:20)
[2019-01-02] MEDS: CLOPIDOGREL 75 MG TABLET PO SCH (08:50)
[2019-01-02] MEDS: METOPROLOL TARTRATE 25 MG TABLET PO/NG SCH ×2 (08:50→21:00)
[2019-01-02] MEDS: DIGOXIN 0.25 MG/ML, 2ML IVPush SCH (08:50)
[2019-01-02] MEDS: ASPIRIN 81 MG TABLET CHEW PO SCH (08:50)
[2019-01-02] MEDS: SODIUM CHLORIDE FLUSH 10ML SYR IVF SCH ×4 (08:51→21:20)
[2019-01-02] MEDS: DOCUSATE 100 MG CAPSULE PO SCH ×2 (08:51→21:00)
[2019-01-02] MEDS ORDERED: METOCLOPRAMIDE 5 MG/ML, 2ML IVPush ONE (09:00)
[2019-01-02] MEDS ORDERED: DOCUSATE 50 MG/5 ML, 10ML UDC PO PRN (09:30)
[2019-01-02] MEDS: ENALAPRILAT 1.25 MG/ML, 2ML IV PRN ×3 (09:43→19:54)
[2019-01-02] MEDS: FILTER 0.22 MICRON IV PRN (11:21)
[2019-01-02] MEDS: AMIODARONE 900 MG in DEXTROSE 5% 482 ML IV PRN (11:21)
[2019-01-02] MEDS: morphine SULFATE 10 MG/ML, 1ML IVPush PRN ×2 (15:20→22:15)
[2019-01-02] MEDS: EPINEPHRINE 1 MG in SODIUM CHLORIDE 0.9% 249 ML IV PRN ×2 (20:20→23:59)
[2019-01-03] MEDS: ENALAPRILAT 1.25 MG/ML, 2ML IV PRN ×4 (00:10→18:23)
[2019-01-03] MEDS: ALBUTEROL/IPRATROPIUM 2.5MG/0.5MG, 3 ML INLINE SCH ×6 (02:10→23:00)
[2019-01-03] MEDS: DOBUTAMINE/D5W PMX 250 ML IV PRN ×3 (02:29→23:00)
[2019-01-03] MEDS: PROPOFOL 100 ML IV PRN ×4 (02:30→18:46)
[2019-01-03] MEDS: INSULIN LISPRO 100 UNITS/ML, PEN SQ-INSULIN SCH ×6 (03:00→23:00)
[2019-01-03] MEDS: EPINEPHRINE 1 MG in SODIUM CHLORIDE 0.9% 249 ML IV PRN ×2 (03:27→11:43)
[2019-01-03 04:56] LABS: MEAN CORPUSCULAR HEMOGLOBIN 27.8 pg (27.5-34.5); MEAN CORPUSCULAR HGB CONC 31.6 g/dL (33.2-36.2); MEAN CORPUSCULAR VOLUME 88.2 fL (81-97); MEAN PLATELET VOLUME 10.6 fL (7.4-10.4); PLATELET COUNT 117 x10^3/uL (130-400); RED BLOOD COUNT 3.35 x10^6/uL (4.38-5.82); RED CELL DISTRIBUTION WIDTH 15.3 % (9.4-14.8)
[2019-01-03 05:02] LABS: ANION GAP 5 mmol/L (5-15); CALCIUM 7.8 mg/dL (8.5-10.1); CHLORIDE 108 mmol/L (98-107)
[2019-01-03 05:09] LABS: CREATININE 0.67 mg/dL (0.7-1.3)
[2019-01-03 05:25] LABS: BASOPHILS # (AUTO) 0.04 x10^3/uL (0-0.1); BASOPHILS % (AUTO) 0 % (0-1); EOSINOPHILS # (AUTO) 0.28 x10^3/uL (0-0.4); EOSINOPHILS % (AUTO) 2 % (1-7); LYMPHOCYTES # (AUTO) 1.07 x10^3/uL (1-3.4); LYMPHOCYTES % (AUTO) 9 % (22-44); MD SCAN; MONOCYTES % (AUTO) 7 % (2-9); NEUTROPHILS # (AUTO) 9.52 x10^3/uL (1.8-6.8); NEUTROPHILS % (AUTO) 81 % (42-75)
[2019-01-03] MEDS: morphine SULFATE 10 MG/ML, 1ML IVPush PRN ×3 (08:22→23:06)
[2019-01-03] MEDS: SODIUM CHLORIDE FLUSH 10ML SYR IVF SCH ×4 (09:00→21:28)
[2019-01-03] MEDS: METOPROLOL TARTRATE 25 MG TABLET PO/NG SCH ×2 (09:00→18:10)
[2019-01-03] MEDS: DOCUSATE 100 MG CAPSULE PO SCH ×2 (09:00→21:00)
[2019-01-03] MEDS: DIGOXIN 0.25 MG/ML, 2ML IVPush SCH (10:11)
[2019-01-03] MEDS: FAMOTIDINE 20 MG/2 ML IVPush SCH ×2 (10:12→21:27)
[2019-01-03] MEDS: CLOPIDOGREL 75 MG TABLET PO SCH (10:12)
[2019-01-03] MEDS: ASPIRIN 81 MG TABLET CHEW PO SCH (10:12)
[2019-01-03] MEDS ORDERED: EPINEPHRINE 1 MG in SODIUM CHLORIDE 0.9% 249 ML IV PRN (13:30)
[2019-01-03] MEDS: EPINEPHRINE 2 MG in SODIUM CHLORIDE 0.9% 248 ML IV PRN ×2 (13:33→18:36)
[2019-01-03] MEDS: AMIODARONE 900 MG in DEXTROSE 5% 482 ML IV PRN (14:17)
[2019-01-03] MEDS ORDERED: PROPOFOL 10 MG/ML, 20ML ONE (14:24)
[2019-01-03] MEDS ORDERED: ROCURONIUM 10 MG/ML,10ML ONE (14:24)
[2019-01-03] MEDS ORDERED: FENTANYL PF 100 MCG/2ML ONE (15:27)
[2019-01-03] MEDS ORDERED: HEPARIN 1,000 UNITS/ML, 10ML ONE (16:05)
[2019-01-03] MEDS ORDERED: THROMBIN 5,000 UNIT VIAL TP ONE ×2 (16:14→16:25)
[2019-01-03] MEDS ORDERED: NEOSPORIN OINT, 15GM TP ONE (16:30)
[2019-01-03] MEDS: HEPARIN 25,000 UNITS/500ML PMX 500 ML IV SCH (23:02)
[2019-01-04] MEDS: HEPARIN 5,000 UNITS/ML, 1ML IV PRN ×2 (00:35→18:30)
[2019-01-04] MEDS: morphine SULFATE 10 MG/ML, 1ML IVPush PRN ×4 (02:46→23:12)
[2019-01-04] MEDS: ALBUTEROL/IPRATROPIUM 2.5MG/0.5MG, 3 ML INLINE SCH ×6 (03:00→23:00)
[2019-01-04] MEDS: INSULIN LISPRO 100 UNITS/ML, PEN SQ-INSULIN SCH ×3 (05:00→21:55)
[2019-01-04] MEDS: PROPOFOL 100 ML IV PRN ×2 (05:37→18:12)
[2019-01-04] MEDS: DOBUTAMINE/D5W PMX 250 ML IV PRN ×3 (06:06→20:10)
[2019-01-04 06:12] LABS: BASOPHILS # (AUTO) 0.03 x10^3/uL (0-0.1); BASOPHILS % (AUTO) 0 % (0-1); EOSINOPHILS # (AUTO) 0.26 x10^3/uL (0-0.4); EOSINOPHILS % (AUTO) 3 % (1-7); LYMPHOCYTES # (AUTO) 0.79 x10^3/uL (1-3.4); LYMPHOCYTES % (AUTO) 8 % (22-44); MD NO; MEAN CORPUSCULAR HEMOGLOBIN 29.6 pg (27.5-34.5); MEAN CORPUSCULAR HGB CONC 33.8 g/dL (33.2-36.2); MEAN CORPUSCULAR VOLUME 87.5 fL (81-97); MEAN PLATELET VOLUME 10.8 fL (7.4-10.4); MONOCYTES # (AUTO) 0.54 x10^3/uL (0.2-0.8); MONOCYTES % (AUTO) 5 % (2-9); NEUTROPHILS # (AUTO) 8.82 x10^3/uL (1.8-6.8); NEUTROPHILS % (AUTO) 84 % (42-75); PLATELET COUNT 124 x10^3/uL (130-400); RED BLOOD COUNT 3.16 x10^6/uL (4.38-5.82); RED CELL DISTRIBUTION WIDTH 15.4 % (9.4-14.8)
[2019-01-04 06:26] LABS: CHLORIDE 106 mmol/L (98-107)
[2019-01-04] MEDS: EPINEPHRINE 2 MG in SODIUM CHLORIDE 0.9% 248 ML IV PRN ×2 (06:34→17:15)
[2019-01-04 06:38] LABS: ANION GAP 6 mmol/L (5-15); CALCIUM 7.8 mg/dL (8.5-10.1); CREATININE 0.66 mg/dL (0.7-1.3)
[2019-01-04] MEDS: SODIUM CHLORIDE FLUSH 10ML SYR IVF SCH ×4 (09:00→21:33)
[2019-01-04] MEDS ORDERED: FUROSEMIDE 20 MG/2 ML IV ONE ×3 (09:00→21:00)
[2019-01-04] MEDS: METOPROLOL TARTRATE 25 MG TABLET PO/NG SCH ×2 (09:00→21:34)
[2019-01-04] MEDS: FAMOTIDINE 20 MG/2 ML IVPush SCH ×2 (09:19→21:34)
[2019-01-04] MEDS: DIGOXIN 0.25 MG/ML, 2ML IVPush SCH (09:23)
[2019-01-04] MEDS: ASPIRIN 81 MG TABLET CHEW PO SCH (09:27)
[2019-01-04] MEDS: CLOPIDOGREL 75 MG TABLET PO SCH (09:27)
[2019-01-04] MEDS ORDERED: CALCIUM CHLORIDE 13.6 MEQ in SODIUM CHLORIDE 0.9% 100 ML IV ONE (09:30)
[2019-01-04] MEDS: ENALAPRILAT 1.25 MG/ML, 2ML IV PRN ×2 (13:41→21:35)
[2019-01-04] MEDS ORDERED: VANCOMYCIN PER PHARMACY MC PRN (17:30)
[2019-01-04] MEDS ORDERED: VANCOMYCIN PMX 1GM/200ML 200 ML IV ONE (17:30)
[2019-01-04] MEDS: PIPERACILLIN/TAZO/PMX 3.375GM 50 ML IV SCH ×2 (18:35→23:48)
[2019-01-04] MEDS ORDERED: PHARMACOKINETIC MONITORING MC PRN (19:00)
[2019-01-04] MEDS ORDERED: PHARMACOKINETIC CONSULTATION MC ONE (19:00)
[2019-01-04] MEDS: VANCOMYCIN 2,000 MG in SODIUM CHLORIDE 0.9% 500 ML IV SCH (20:10)
[2019-01-04] MEDS: AMIODARONE 900 MG in DEXTROSE 5% 482 ML IV PRN (20:11)
[2019-01-04] MEDS: FILTER 0.22 MICRON IV PRN (20:11)
[2019-01-04] MEDS: HEPARIN 25,000 UNITS/500ML PMX 500 ML IV SCH (20:13)
[2019-01-04] MEDS: DOCUSATE 50 MG/5 ML, 10ML UDC PO SCH (21:34)
[2019-01-05] MEDS: ALBUTEROL/IPRATROPIUM 2.5MG/0.5MG, 3 ML INLINE SCH ×6 (03:00→23:00)
[2019-01-05] MEDS: DOBUTAMINE/D5W PMX 250 ML IV PRN (03:01)
[2019-01-05] MEDS: PROPOFOL 100 ML IV PRN (03:27)
[2019-01-05] MEDS: ENALAPRILAT 1.25 MG/ML, 2ML IV PRN (03:28)
[2019-01-05 05:24] LABS: BASOPHILS # (AUTO) 0.01 x10^3/uL (0-0.1); BASOPHILS % (AUTO) 0 % (0-1); EOSINOPHILS # (AUTO) 0.15 x10^3/uL (0-0.4); EOSINOPHILS % (AUTO) 2 % (1-7); LYMPHOCYTES # (AUTO) 0.58 x10^3/uL (1-3.4); LYMPHOCYTES % (AUTO) 6 % (22-44); MD NO; MEAN CORPUSCULAR HEMOGLOBIN 29.6 pg (27.5-34.5); MEAN CORPUSCULAR HGB CONC 33.5 g/dL (33.2-36.2); MEAN CORPUSCULAR VOLUME 88.2 fL (81-97); MONOCYTES # (AUTO) 0.57 x10^3/uL (0.2-0.8); MONOCYTES % (AUTO) 6 % (2-9); NEUTROPHILS # (AUTO) 8.75 x10^3/uL (1.8-6.8); NEUTROPHILS % (AUTO) 87 % (42-75); PLATELET COUNT 143 x10^3/uL (130-400); RED CELL DISTRIBUTION WIDTH 15.6 % (9.4-14.8)
[2019-01-05 05:28] LABS: CHLORIDE 104 mmol/L (98-107)
[2019-01-05 05:43] LABS: ANION GAP 7 mmol/L (5-15); CALCIUM 8.2 mg/dL (8.5-10.1); CREATININE 0.81 mg/dL (0.7-1.3); TRIGLYCERIDES 94 mg/dL (50-200)
[2019-01-05] MEDS: PIPERACILLIN/TAZO/PMX 3.375GM 50 ML IV SCH ×4 (06:02→23:21)
[2019-01-05] MEDS: morphine SULFATE 10 MG/ML, 1ML IVPush PRN (06:18)
[2019-01-05] MEDS: INSULIN LISPRO 100 UNITS/ML, PEN SQ-INSULIN SCH ×2 (09:00→18:22)
[2019-01-05] MEDS: METOPROLOL TARTRATE 25 MG TABLET PO/NG SCH ×2 (09:00→11:08)
[2019-01-05] MEDS: SODIUM CHLORIDE FLUSH 10ML SYR IVF SCH ×3 (09:00→21:27)
[2019-01-05] MEDS: CLOPIDOGREL 75 MG TABLET PO SCH (09:55)
[2019-01-05] MEDS: FUROSEMIDE 20 MG/2 ML IV SCH ×2 (09:56→21:28)
[2019-01-05] MEDS: FAMOTIDINE 20 MG/2 ML IVPush SCH ×2 (09:56→21:30)
[2019-01-05] MEDS: ASPIRIN 81 MG TABLET CHEW PO SCH (09:56)
[2019-01-05] MEDS: DIGOXIN 0.25 MG/ML, 2ML IVPush SCH (09:56)
[2019-01-05] MEDS: DOCUSATE 50 MG/5 ML, 10ML UDC PO SCH ×2 (09:56→21:31)
[2019-01-05 12:06] LABS: % IRON SATURATION 6 % (20-55); IRON LEVEL 17 mcg/dL (65-175); TOTAL IRON BINDING CAPACITY 266 mcg/dL (250-450)
[2019-01-05] MEDS: OXYcodone IR 5MG TABLET PO PRN ×2 (13:14→23:15)
[2019-01-05] MEDS ORDERED: LISINOPRIL 10 MG TABLET ONE (13:27)
[2019-01-05] MEDS: HEPARIN 25,000 UNITS/500ML PMX 500 ML IV PRN (14:23)
[2019-01-05] MEDS: VANCOMYCIN 2,000 MG in SODIUM CHLORIDE 0.9% 500 ML IV SCH (14:25)
[2019-01-05] MEDS: LISINOPRIL 10 MG TABLET PO SCH (18:20)
[2019-01-06] MEDS: ALBUTEROL/IPRATROPIUM 2.5MG/0.5MG, 3 ML INLINE SCH ×6 (03:00→22:33)
[2019-01-06] MEDS: HEPARIN 25,000 UNITS/500ML PMX 500 ML IV PRN ×2 (04:52→21:12)
[2019-01-06] MEDS: PIPERACILLIN/TAZO/PMX 3.375GM 50 ML IV SCH ×4 (05:25→22:40)
[2019-01-06 05:30] LABS: CHLORIDE 104 mmol/L (98-107)
[2019-01-06 05:36] LABS: BASOPHILS # (AUTO) 0.04 x10^3/uL (0-0.1); BASOPHILS % (AUTO) 0 % (0-1); EOSINOPHILS # (AUTO) 0.16 x10^3/uL (0-0.4); EOSINOPHILS % (AUTO) 2 % (1-7); LYMPHOCYTES # (AUTO) 0.53 x10^3/uL (1-3.4); LYMPHOCYTES % (AUTO) 6 % (22-44); MD NO; MEAN CORPUSCULAR HEMOGLOBIN 29.5 pg (27.5-34.5); MEAN CORPUSCULAR HGB CONC 33.7 g/dL (33.2-36.2); MEAN CORPUSCULAR VOLUME 87.6 fL (81-97); MEAN PLATELET VOLUME 9.7 fL (7.4-10.4); MONOCYTES % (AUTO) 5 % (2-9); NEUTROPHILS % (AUTO) 87 % (42-75); PLATELET COUNT 178 x10^3/uL (130-400); RED BLOOD COUNT 2.77 x10^6/uL (4.38-5.82); RED CELL DISTRIBUTION WIDTH 15.4 % (9.4-14.8)
[2019-01-06 05:56] LABS: ANION GAP 6 mmol/L (5-15); CREATININE 0.83 mg/dL (0.7-1.3)
[2019-01-06] MEDS ORDERED: POTASSIUM CHLORIDE 20 MEQ TAB.ER.PRT PO SCH (08:30)
[2019-01-06] MEDS: VANCOMYCIN 2,000 MG in SODIUM CHLORIDE 0.9% 500 ML IV SCH (08:30)
[2019-01-06] MEDS: POTASSIUM CHLORIDE 10% 20 MEQ/15 ML UDC PO SCH (09:08)
[2019-01-06] MEDS: IRON SUCROSE COMPLEX 100MG/5ML IV SCH (09:09)
[2019-01-06] MEDS: ASPIRIN 81 MG TABLET CHEW PO SCH (09:09)
[2019-01-06] MEDS: FAMOTIDINE 20 MG/2 ML IVPush SCH ×2 (09:09→20:07)
[2019-01-06] MEDS: FUROSEMIDE 20 MG/2 ML IV SCH ×2 (09:09→20:07)
[2019-01-06] MEDS: DOCUSATE 50 MG/5 ML, 10ML UDC PO SCH ×2 (09:09→20:07)
[2019-01-06] MEDS: LISINOPRIL 10 MG TABLET PO SCH ×2 (09:09→20:07)
[2019-01-06] MEDS: DIGOXIN 0.25 MG/ML, 2ML IVPush SCH (09:09)
[2019-01-06] MEDS: CLOPIDOGREL 75 MG TABLET PO SCH (09:10)
[2019-01-06] MEDS: SODIUM CHLORIDE FLUSH 10ML SYR IVF SCH ×2 (09:10→20:07)
[2019-01-06] MEDS: CARVEDILOL 3.125 MG TABLET PO SCH ×2 (09:39→17:53)
[2019-01-06] MEDS: OXYcodone IR 5MG TABLET PO PRN (17:51)
[2019-01-06] MEDS: morphine SULFATE 10 MG/ML, 1ML IVPush PRN (22:40)
[2019-01-07] MEDS: VANCOMYCIN 2,000 MG in SODIUM CHLORIDE 0.9% 500 ML IV SCH ×2 (02:03→21:02)
[2019-01-07] MEDS: ALBUTEROL/IPRATROPIUM 2.5MG/0.5MG, 3 ML INLINE SCH ×6 (03:00→22:12)
[2019-01-07] MEDS: OXYcodone IR 5MG TABLET PO PRN (03:31)
[2019-01-07 04:04] LABS: BASOPHILS # (AUTO) 0.03 x10^3/uL (0-0.1); BASOPHILS % (AUTO) 0 % (0-1); EOSINOPHILS # (AUTO) 0.14 x10^3/uL (0-0.4); EOSINOPHILS % (AUTO) 2 % (1-7); LYMPHOCYTES % (AUTO) 7 % (22-44); MD NO; MEAN CORPUSCULAR HEMOGLOBIN 28.5 pg (27.5-34.5); MEAN CORPUSCULAR HGB CONC 32.5 g/dL (33.2-36.2); MEAN CORPUSCULAR VOLUME 87.8 fL (81-97); MEAN PLATELET VOLUME 9.4 fL (7.4-10.4); MONOCYTES # (AUTO) 0.38 x10^3/uL (0.2-0.8); MONOCYTES % (AUTO) 4 % (2-9); NEUTROPHILS # (AUTO) 7.61 x10^3/uL (1.8-6.8); NEUTROPHILS % (AUTO) 87 % (42-75); PLATELET COUNT 236 x10^3/uL (130-400); RED BLOOD COUNT 2.93 x10^6/uL (4.38-5.82); RED CELL DISTRIBUTION WIDTH 15.5 % (9.4-14.8)
[2019-01-07 04:09] LABS: ANION GAP 6 mmol/L (5-15); CALCIUM 7.6 mg/dL (8.5-10.1); CHLORIDE 106 mmol/L (98-107); CREATININE 0.93 mg/dL (0.7-1.3)
[2019-01-07] MEDS: PIPERACILLIN/TAZO/PMX 3.375GM 50 ML IV SCH ×4 (05:02→23:22)
[2019-01-07] MEDS: CARVEDILOL 3.125 MG TABLET PO SCH (05:02)
[2019-01-07] MEDS: POTASSIUM CHLORIDE 10% 20 MEQ/15 ML UDC PO SCH (08:45)
[2019-01-07] MEDS: LISINOPRIL 10 MG TABLET PO SCH ×2 (08:45→21:02)
[2019-01-07] MEDS: DOCUSATE 50 MG/5 ML, 10ML UDC PO SCH ×2 (08:45→21:02)
[2019-01-07] MEDS: CLOPIDOGREL 75 MG TABLET PO SCH (08:45)
[2019-01-07] MEDS: ASPIRIN 81 MG TABLET CHEW PO SCH (08:45)
[2019-01-07] MEDS: IRON SUCROSE COMPLEX 100MG/5ML IV SCH (08:47)
[2019-01-07] MEDS: FUROSEMIDE 20 MG/2 ML IV SCH ×2 (08:47→21:01)
[2019-01-07] MEDS: DIGOXIN 0.25 MG/ML, 2ML IVPush SCH (08:47)
[2019-01-07] MEDS: SODIUM CHLORIDE FLUSH 10ML SYR IVF SCH ×2 (12:11→21:02)
[2019-01-07] MEDS: FAMOTIDINE 20 MG/2 ML IVPush SCH ×2 (12:11→21:01)
[2019-01-07] MEDS: HEPARIN 25,000 UNITS/500ML PMX 500 ML IV PRN (13:23)
[2019-01-07] MEDS: CARVEDILOL 6.25 MG TABLET PO SCH (17:41)
[2019-01-08] MEDS: ALBUTEROL/IPRATROPIUM 2.5MG/0.5MG, 3 ML INLINE SCH ×6 (02:16→22:54)
[2019-01-08] MEDS: HEPARIN 25,000 UNITS/500ML PMX 500 ML IV PRN ×2 (03:28→18:58)
[2019-01-08] MEDS: PIPERACILLIN/TAZO/PMX 3.375GM 50 ML IV SCH ×4 (05:06→23:23)
[2019-01-08 05:10] LABS: BASOPHILS # (AUTO) 0.04 x10^3/uL (0-0.1); BASOPHILS % (AUTO) 1 % (0-1); EOSINOPHILS # (AUTO) 0.17 x10^3/uL (0-0.4); EOSINOPHILS % (AUTO) 2 % (1-7); LYMPHOCYTES % (AUTO) 8 % (22-44); MD NO; MEAN CORPUSCULAR HGB CONC 33.3 g/dL (33.2-36.2); MEAN CORPUSCULAR VOLUME 87.3 fL (81-97); MEAN PLATELET VOLUME 9.3 fL (7.4-10.4); MONOCYTES # (AUTO) 0.57 x10^3/uL (0.2-0.8); MONOCYTES % (AUTO) 7 % (2-9); NEUTROPHILS # (AUTO) 6.99 x10^3/uL (1.8-6.8); NEUTROPHILS % (AUTO) 83 % (42-75); PLATELET COUNT 291 x10^3/uL (130-400); RED BLOOD COUNT 2.93 x10^6/uL (4.38-5.82); RED CELL DISTRIBUTION WIDTH 15.3 % (9.4-14.8)
[2019-01-08 05:11] LABS: ANION GAP 5 mmol/L (5-15); CHLORIDE 109 mmol/L (98-107); CREATININE 0.93 mg/dL (0.7-1.3); TRIGLYCERIDES 63 mg/dL (50-200)
[2019-01-08] MEDS: CARVEDILOL 6.25 MG TABLET PO SCH ×2 (05:11→17:27)
[2019-01-08] MEDS: HEPARIN 5,000 UNITS/ML, 1ML IV PRN (07:14)
[2019-01-08] MEDS ORDERED: MIDAZOLAM 1 MG/ML, 5ML IV PRN (09:30)
[2019-01-08] MEDS: POTASSIUM CHLORIDE 10% 20 MEQ/15 ML UDC PO SCH (09:53)
[2019-01-08] MEDS: ASPIRIN 81 MG TABLET CHEW PO SCH (09:53)
[2019-01-08] MEDS: DOCUSATE 50 MG/5 ML, 10ML UDC PO SCH ×2 (09:53→20:05)
[2019-01-08] MEDS: IRON SUCROSE COMPLEX 100MG/5ML IV SCH (09:53)
[2019-01-08] MEDS: FAMOTIDINE 20 MG/2 ML IVPush SCH ×2 (09:53→20:05)
[2019-01-08] MEDS: CLOPIDOGREL 75 MG TABLET PO SCH (09:53)
[2019-01-08] MEDS: LISINOPRIL 10 MG TABLET PO SCH ×2 (09:54→20:06)
[2019-01-08] MEDS: SODIUM CHLORIDE FLUSH 10ML SYR IVF SCH ×2 (09:54→20:05)
[2019-01-08] MEDS: FUROSEMIDE 20 MG/2 ML IV SCH ×3 (09:58→20:05)
[2019-01-08] MEDS: DIGOXIN 0.25 MG/ML, 2ML IVPush SCH (09:58)
[2019-01-08] MEDS ORDERED: GADOBUTROL 10 MMOL/10 ML PFS ONE (12:06)
[2019-01-08] MEDS: VANCOMYCIN 2,000 MG in SODIUM CHLORIDE 0.9% 500 ML IV SCH (14:33)
[2019-01-09] MEDS: ALBUTEROL/IPRATROPIUM 2.5MG/0.5MG, 3 ML INLINE SCH ×6 (02:20→23:29)
[2019-01-09] MEDS: PIPERACILLIN/TAZO/PMX 3.375GM 50 ML IV SCH ×4 (05:46→23:35)
[2019-01-09] MEDS: CARVEDILOL 6.25 MG TABLET PO SCH ×2 (05:46→18:12)
[2019-01-09 06:13] LABS: CALCIUM 7.9 mg/dL (8.5-10.1); CHLORIDE 111 mmol/L (98-107)
[2019-01-09 06:21] LABS: ALANINE AMINOTRANSFERASE 32 U/L (12-78); ALKALINE PHOSPHATASE 167 U/L (45-117); BILIRUBIN,TOTAL 0.9 mg/dL (0.2-1.0); TOTAL PROTEIN 5.8 g/dL (6.4-8.2)
[2019-01-09 06:26] LABS: ALBUMIN 1.7 g/dL (3.4-5.0); ANION GAP 6 mmol/L (5-15)
[2019-01-09 06:31] LABS: MEAN CORPUSCULAR HEMOGLOBIN 28.3 pg (27.5-34.5); MEAN CORPUSCULAR HGB CONC 32.2 g/dL (33.2-36.2); MEAN CORPUSCULAR VOLUME 87.9 fL (81-97); MEAN PLATELET VOLUME 8.8 fL (7.4-10.4); PLATELET COUNT 324 x10^3/uL (130-400); RED BLOOD COUNT 2.85 x10^6/uL (4.38-5.82); RED CELL DISTRIBUTION WIDTH 16.4 % (9.4-14.8)
[2019-01-09] MEDS: HEPARIN 5,000 UNITS/ML, 1ML IV PRN (06:55)
[2019-01-09 06:56] LABS: BASOPHILS # (AUTO) 0.06 x10^3/uL (0-0.1); BASOPHILS % (AUTO) 1 % (0-1); EOSINOPHILS # (AUTO) 0.14 x10^3/uL (0-0.4); EOSINOPHILS % (AUTO) 2 % (1-7); LYMPHOCYTES # (AUTO) 0.72 x10^3/uL (1-3.4); LYMPHOCYTES % (AUTO) 11 % (22-44); MD SCAN; MONOCYTES % (AUTO) 6 % (2-9); NEUTROPHILS # (AUTO) 5.37 x10^3/uL (1.8-6.8); NEUTROPHILS % (AUTO) 80 % (42-75)
[2019-01-09] MEDS: HEPARIN 25,000 UNITS/500ML PMX 500 ML IV PRN (07:11)
[2019-01-09] MEDS: VANCOMYCIN 2,000 MG in SODIUM CHLORIDE 0.9% 500 ML IV SCH (08:32)
[2019-01-09] MEDS: LISINOPRIL 10 MG TABLET PO SCH ×2 (10:36→20:01)
[2019-01-09] MEDS: CLOPIDOGREL 75 MG TABLET PO SCH (10:36)
[2019-01-09] MEDS: DOCUSATE 50 MG/5 ML, 10ML UDC PO SCH ×2 (10:36→20:01)
[2019-01-09] MEDS: ASPIRIN 81 MG TABLET CHEW PO SCH (10:36)
[2019-01-09] MEDS: POTASSIUM CHLORIDE 10% 20 MEQ/15 ML UDC PO SCH (10:36)
[2019-01-09] MEDS: FUROSEMIDE 20 MG/2 ML IV SCH ×3 (10:37→20:01)
[2019-01-09] MEDS: FAMOTIDINE 20 MG/2 ML IVPush SCH ×2 (10:37→20:01)
[2019-01-09] MEDS ORDERED: OMNIPAQUE 350 MG/ML, 150 ML BOTTLE ONE (12:31)
[2019-01-09] MEDS: DIGOXIN 0.25 MG/ML, 2ML IVPush SCH (13:28)
[2019-01-09] MEDS: SODIUM CHLORIDE FLUSH 10ML SYR IVF SCH ×2 (13:28→20:01)
[2019-01-10] MEDS: ALBUTEROL/IPRATROPIUM 2.5MG/0.5MG, 3 ML INLINE SCH ×6 (03:10→22:05)
[2019-01-10] MEDS: PIPERACILLIN/TAZO/PMX 3.375GM 50 ML IV SCH ×3 (04:53→20:07)
[2019-01-10] MEDS: CARVEDILOL 6.25 MG TABLET PO SCH ×2 (04:59→18:00)
[2019-01-10 05:24] LABS: BASOPHILS # (AUTO) 0.03 x10^3/uL (0-0.1); BASOPHILS % (AUTO) 0 % (0-1); EOSINOPHILS # (AUTO) 0.14 x10^3/uL (0-0.4); EOSINOPHILS % (AUTO) 2 % (1-7); LYMPHOCYTES # (AUTO) 0.86 x10^3/uL (1-3.4); LYMPHOCYTES % (AUTO) 12 % (22-44); MD NO; MEAN CORPUSCULAR HEMOGLOBIN 29.2 pg (27.5-34.5); MEAN CORPUSCULAR HGB CONC 33.5 g/dL (33.2-36.2); MEAN CORPUSCULAR VOLUME 87.1 fL (81-97); MEAN PLATELET VOLUME 8.8 fL (7.4-10.4); MONOCYTES # (AUTO) 0.44 x10^3/uL (0.2-0.8); MONOCYTES % (AUTO) 6 % (2-9); NEUTROPHILS # (AUTO) 5.94 x10^3/uL (1.8-6.8); NEUTROPHILS % (AUTO) 80 % (42-75); PLATELET COUNT 348 x10^3/uL (130-400); RED BLOOD COUNT 2.84 x10^6/uL (4.38-5.82); RED CELL DISTRIBUTION WIDTH 16.3 % (9.4-14.8)
[2019-01-10 05:31] LABS: INTERNATIONAL NORMALIZED RATIO 1.04 (0.93-1.1); PROTHROMBIN TIME 10.9 Seconds (9.6-11.5)
[2019-01-10 05:35] LABS: ANION GAP 6 mmol/L (5-15); CALCIUM 8.2 mg/dL (8.5-10.1); CHLORIDE 107 mmol/L (98-107); CREATININE 0.81 mg/dL (0.7-1.3)
[2019-01-10] MEDS: ASPIRIN 81 MG TABLET CHEW PO SCH (09:00)
[2019-01-10] MEDS: LISINOPRIL 10 MG TABLET PO SCH ×2 (09:00→20:18)
[2019-01-10] MEDS: DOCUSATE 50 MG/5 ML, 10ML UDC PO SCH ×2 (09:00→20:12)
[2019-01-10] MEDS: CLOPIDOGREL 75 MG TABLET PO SCH (09:00)
[2019-01-10] MEDS: FUROSEMIDE 20 MG/2 ML IV SCH (09:29)
[2019-01-10] MEDS: SODIUM CHLORIDE FLUSH 10ML SYR IVF SCH ×2 (09:30→20:12)
[2019-01-10] MEDS: POTASSIUM CHLORIDE 10% 20 MEQ/15 ML UDC PO SCH ×2 (09:30→20:13)
[2019-01-10] MEDS: DIGOXIN 0.25 MG/ML, 2ML IVPush SCH (09:30)
[2019-01-10] MEDS: FAMOTIDINE 20 MG/2 ML IVPush SCH ×2 (09:30→20:17)
[2019-01-10] MEDS: OXYcodone IR 5MG TABLET PO PRN (09:31)
[2019-01-10] MEDS ORDERED: FENTANYL PF 100 MCG/2ML ONE (10:07)
[2019-01-10] MEDS ORDERED: CEFAZOLIN 1,000 MG IM ONE (10:30)
[2019-01-10] MEDS ORDERED: CEFAZOLIN 2,000 MG in SODIUM CHLORIDE 0.9% 50 ML IV ONE (11:00)
[2019-01-10] MEDS ORDERED: MIDAZOLAM 1 MG/ML, 2ML IVPush ONE (11:30)
[2019-01-10] MEDS ORDERED: VECURONIUM 10 MG IVPush ONE (11:30)
[2019-01-10] MEDS ORDERED: FENTANYL PF 100 MCG/2ML IVPush ONE (11:30)
[2019-01-10] MEDS: MIDAZOLAM 1 MG/ML, 5ML IVPush PRN (11:55)
[2019-01-10] MEDS ORDERED: LACTATED RINGERS 500 ML IVBOLUS ONE (12:00)
[2019-01-10] MEDS: PROPOFOL 100 ML IV PRN (12:14)
[2019-01-10] MEDS ORDERED: MIDAZOLAM 1 MG/ML, 5ML ONE (15:21)
[2019-01-10] MEDS ORDERED: VECURONIUM 10 MG ONE (15:21)
[2019-01-10] MEDS: KSCALE TO 4.5 IV SCH ×2 (16:00→22:00)
[2019-01-10] MEDS: FUROSEMIDE 40 MG/4 ML IV SCH ×2 (16:44→20:14)
[2019-01-10] MEDS ORDERED: POTASSIUM CHLORIDE PMX 100 ML IV ONE ×2 (18:00→22:30)
[2019-01-10] MEDS: HEPARIN 25,000 UNITS/500ML PMX 500 ML IV PRN (19:28)
[2019-01-11] MEDS: ALBUTEROL/IPRATROPIUM 2.5MG/0.5MG, 3 ML INLINE SCH ×6 (02:21→23:00)
[2019-01-11] MEDS: OXYcodone IR 5MG TABLET PO PRN ×4 (02:52→21:12)
[2019-01-11] MEDS: KSCALE TO 4.5 IV SCH ×4 (04:00→21:50)
[2019-01-11 04:47] LABS: BASOPHILS # (AUTO) 0.04 x10^3/uL (0-0.1); BASOPHILS % (AUTO) 0 % (0-1); EOSINOPHILS # (AUTO) 0.08 x10^3/uL (0-0.4); EOSINOPHILS % (AUTO) 1 % (1-7); LYMPHOCYTES # (AUTO) 0.65 x10^3/uL (1-3.4); LYMPHOCYTES % (AUTO) 8 % (22-44); MD NO; MEAN CORPUSCULAR HEMOGLOBIN 29.1 pg (27.5-34.5); MEAN CORPUSCULAR HGB CONC 33.4 g/dL (33.2-36.2); MEAN CORPUSCULAR VOLUME 87.3 fL (81-97); MEAN PLATELET VOLUME 8.9 fL (7.4-10.4); MONOCYTES # (AUTO) 0.42 x10^3/uL (0.2-0.8); MONOCYTES % (AUTO) 5 % (2-9); NEUTROPHILS # (AUTO) 7.06 x10^3/uL (1.8-6.8); NEUTROPHILS % (AUTO) 86 % (42-75); PLATELET COUNT 398 x10^3/uL (130-400); RED BLOOD COUNT 3.07 x10^6/uL (4.38-5.82); RED CELL DISTRIBUTION WIDTH 16.6 % (9.4-14.8)
[2019-01-11] MEDS: CARVEDILOL 6.25 MG TABLET PO SCH ×2 (05:00→17:45)
[2019-01-11 05:04] LABS: CALCIUM 8.4 mg/dL (8.5-10.1); CHLORIDE 108 mmol/L (98-107)
[2019-01-11 05:07] LABS: ANION GAP 6 mmol/L (5-15); CREATININE 0.83 mg/dL (0.7-1.3)
[2019-01-11] MEDS ORDERED: POTASSIUM CHLORIDE PMX 100 ML IV ONE (05:30)
[2019-01-11] MEDS ORDERED: CALCIUM CHLORIDE 13.6 MEQ in SODIUM CHLORIDE 0.9% 100 ML IV ONE (08:00)
[2019-01-11] MEDS: POTASSIUM CHLORIDE 10% 20 MEQ/15 ML UDC PO SCH ×2 (08:24→21:07)
[2019-01-11] MEDS: DOCUSATE 50 MG/5 ML, 10ML UDC PO SCH ×2 (08:24→21:00)
[2019-01-11] MEDS: LISINOPRIL 10 MG TABLET PO SCH ×2 (08:25→21:06)
[2019-01-11] MEDS: FUROSEMIDE 40 MG/4 ML IV SCH ×3 (08:25→21:05)
[2019-01-11] MEDS: FAMOTIDINE 20 MG/2 ML IVPush SCH ×2 (08:25→21:05)
[2019-01-11] MEDS: CLOPIDOGREL 75 MG TABLET PO SCH (08:25)
[2019-01-11] MEDS: CALCIUM CARBONATE 500 MG TAB.CHEW PO SCH ×3 (08:25→21:05)
[2019-01-11] MEDS: ASPIRIN 81 MG TABLET CHEW PO SCH (08:25)
[2019-01-11] MEDS: DIGOXIN 0.25 MG/ML, 2ML IVPush SCH (08:26)
[2019-01-11] MEDS: SODIUM CHLORIDE FLUSH 10ML SYR IVF SCH ×2 (08:27→21:05)
[2019-01-11] MEDS: ONDANSETRON 2MG/ML, 2ML IVPush PRN ×2 (09:05→17:58)
[2019-01-11] MEDS: WARFARIN MODERAT DOSE PROTOCOL XX SCH (11:36)
[2019-01-11 11:44] LABS: INTERNATIONAL NORMALIZED RATIO 1.13 (0.93-1.1); PROTHROMBIN TIME 11.8 Seconds (9.6-11.5)
[2019-01-11] MEDS: HEPARIN 25,000 UNITS/500ML PMX 500 ML IV PRN (11:47)
[2019-01-11] MEDS ORDERED: WARFARIN 7.5 MG TABLET PO-COUM ONE (18:00)
[2019-01-12] MEDS: HEPARIN 25,000 UNITS/500ML PMX 500 ML IV PRN ×2 (01:15→17:03)
[2019-01-12] MEDS: ALBUTEROL/IPRATROPIUM 2.5MG/0.5MG, 3 ML INLINE SCH ×6 (03:00→23:16)
[2019-01-12] MEDS: KSCALE TO 4.5 IV SCH ×2 (04:00→10:00)
[2019-01-12 04:35] LABS: BASOPHILS # (AUTO) 0.04 x10^3/uL (0-0.1); BASOPHILS % (AUTO) 1 % (0-1); EOSINOPHILS # (AUTO) 0.12 x10^3/uL (0-0.4); EOSINOPHILS % (AUTO) 2 % (1-7); LYMPHOCYTES # (AUTO) 0.84 x10^3/uL (1-3.4); LYMPHOCYTES % (AUTO) 12 % (22-44); MD NO; MEAN CORPUSCULAR HGB CONC 32.8 g/dL (33.2-36.2); MEAN CORPUSCULAR VOLUME 88.3 fL (81-97); MEAN PLATELET VOLUME 8.9 fL (7.4-10.4); MONOCYTES # (AUTO) 0.34 x10^3/uL (0.2-0.8); MONOCYTES % (AUTO) 5 % (2-9); NEUTROPHILS # (AUTO) 5.47 x10^3/uL (1.8-6.8); NEUTROPHILS % (AUTO) 80 % (42-75); PLATELET COUNT 400 x10^3/uL (130-400); RED BLOOD COUNT 2.99 x10^6/uL (4.38-5.82)
[2019-01-12 04:38] LABS: INTERNATIONAL NORMALIZED RATIO 1.15 (0.93-1.1)
[2019-01-12 04:42] LABS: ANION GAP 3 mmol/L (5-15); CALCIUM 8.5 mg/dL (8.5-10.1); CHLORIDE 104 mmol/L (98-107); CREATININE 0.67 mg/dL (0.7-1.3)
[2019-01-12] MEDS: CARVEDILOL 6.25 MG TABLET PO SCH ×2 (05:10→17:24)
[2019-01-12] MEDS ORDERED: CALCIUM CHLORIDE 13.6 MEQ in SODIUM CHLORIDE 0.9% 100 ML IV ONE (09:00)
[2019-01-12] MEDS: FAMOTIDINE 20 MG/2 ML IVPush SCH ×2 (11:14→22:46)
[2019-01-12] MEDS: DIGOXIN 0.25 MG/ML, 2ML IVPush SCH (11:14)
[2019-01-12] MEDS: SODIUM CHLORIDE FLUSH 10ML SYR IVF SCH ×2 (11:14→21:00)
[2019-01-12] MEDS: FUROSEMIDE 40 MG/4 ML IV SCH ×2 (11:14→22:46)
[2019-01-12] MEDS: POTASSIUM CHLORIDE 10% 20 MEQ/15 ML UDC PO SCH ×2 (11:15→22:46)
[2019-01-12] MEDS: DOCUSATE 50 MG/5 ML, 10ML UDC PO SCH ×2 (11:15→22:46)
[2019-01-12] MEDS: ASPIRIN 81 MG TABLET CHEW PO SCH (11:15)
[2019-01-12] MEDS: CLOPIDOGREL 75 MG TABLET PO SCH (11:15)
[2019-01-12] MEDS: LISINOPRIL 10 MG TABLET PO SCH (11:15)
[2019-01-12] MEDS: CALCIUM CARBONATE 500 MG TAB.CHEW PO SCH ×3 (11:16→22:46)
[2019-01-12] MEDS: WARFARIN MODERAT DOSE PROTOCOL XX SCH (12:00)
[2019-01-12] MEDS ORDERED: WARFARIN 7.5 MG TABLET PO-COUM ONE (18:00)
[2019-01-13] MEDS: LISINOPRIL 10 MG TABLET PO SCH ×3 (02:08→20:29)
[2019-01-13] MEDS: OXYcodone IR 5MG TABLET PO PRN (02:08)
[2019-01-13] MEDS: ALBUTEROL/IPRATROPIUM 2.5MG/0.5MG, 3 ML INLINE SCH ×4 (03:00→15:00)
[2019-01-13 04:39] LABS: INTERNATIONAL NORMALIZED RATIO 1.69 (0.93-1.1); PROTHROMBIN TIME 17.4 Seconds (9.6-11.5)
[2019-01-13] MEDS: CARVEDILOL 6.25 MG TABLET PO SCH ×2 (05:39→17:42)
[2019-01-13 06:32] LABS: BASOPHILS # (AUTO) 0.04 x10^3/uL (0-0.1); BASOPHILS % (AUTO) 1 % (0-1); EOSINOPHILS # (AUTO) 0.16 x10^3/uL (0-0.4); EOSINOPHILS % (AUTO) 2 % (1-7); LYMPHOCYTES # (AUTO) 0.92 x10^3/uL (1-3.4); LYMPHOCYTES % (AUTO) 13 % (22-44); MD NO; MEAN CORPUSCULAR HEMOGLOBIN 29.5 pg (27.5-34.5); MEAN CORPUSCULAR HGB CONC 33.4 g/dL (33.2-36.2); MEAN CORPUSCULAR VOLUME 88.3 fL (81-97); MEAN PLATELET VOLUME 9.2 fL (7.4-10.4); MONOCYTES # (AUTO) 0.32 x10^3/uL (0.2-0.8); MONOCYTES % (AUTO) 5 % (2-9); NEUTROPHILS # (AUTO) 5.62 x10^3/uL (1.8-6.8); NEUTROPHILS % (AUTO) 80 % (42-75); PLATELET COUNT 344 x10^3/uL (130-400); RED BLOOD COUNT 2.97 x10^6/uL (4.38-5.82); RED CELL DISTRIBUTION WIDTH 16.5 % (9.4-14.8)
[2019-01-13 06:45] LABS: ANION GAP 7 mmol/L (5-15); CALCIUM 8.6 mg/dL (8.5-10.1); CHLORIDE 104 mmol/L (98-107); CREATININE 0.67 mg/dL (0.7-1.3)
[2019-01-13] MEDS: HEPARIN 25,000 UNITS/500ML PMX 500 ML IV PRN ×2 (07:42→21:19)
[2019-01-13] MEDS ORDERED: TEMAZEPAM 15 MG CAPSULE PO PRN (09:00)
[2019-01-13] MEDS: DOCUSATE 50 MG/5 ML, 10ML UDC PO SCH ×2 (09:28→20:29)
[2019-01-13] MEDS: FUROSEMIDE 40 MG/4 ML IV SCH ×2 (09:28→20:29)
[2019-01-13] MEDS: POTASSIUM CHLORIDE 10% 20 MEQ/15 ML UDC PO SCH ×2 (09:28→20:29)
[2019-01-13] MEDS: CALCIUM CARBONATE 500 MG TAB.CHEW PO SCH ×3 (09:28→20:29)
[2019-01-13] MEDS: ASPIRIN 81 MG TABLET CHEW PO SCH (09:28)
[2019-01-13] MEDS: DIGOXIN 0.25 MG/ML, 2ML IVPush SCH (09:29)
[2019-01-13] MEDS: FAMOTIDINE 20 MG/2 ML IVPush SCH ×2 (09:29→20:29)
[2019-01-13] MEDS: CLOPIDOGREL 75 MG TABLET PO SCH (09:30)
[2019-01-13] MEDS: SODIUM CHLORIDE FLUSH 10ML SYR IVF SCH ×2 (09:30→20:29)
[2019-01-13] MEDS: WARFARIN MODERAT DOSE PROTOCOL XX SCH (12:02)
[2019-01-13] MEDS: CEFTAROLINE 600 MG in SODIUM CHLORIDE 0.9% 100 ML IV SCH (12:04)
[2019-01-13 12:36] LABS: HCT (SEDRATE) 27.1 % (39.2-51.8)
[2019-01-13 16:57] LABS: HCT (SEDRATE) 29.4 % (39.2-51.8)
[2019-01-13] MEDS: MUPIROCIN OINT 2%, 22GM TP SCH (17:42)
[2019-01-13] MEDS ORDERED: WARFARIN 5 MG TABLET PO-COUM ONE (18:00)
[2019-01-14] MEDS: CEFTAROLINE 600 MG in SODIUM CHLORIDE 0.9% 100 ML IV SCH ×2 (01:22→12:25)
[2019-01-14] MEDS: MUPIROCIN OINT 2%, 22GM TP SCH ×2 (05:43→17:21)
[2019-01-14] MEDS: CARVEDILOL 6.25 MG TABLET PO SCH ×2 (05:43→17:21)
[2019-01-14 05:57] LABS: INTERNATIONAL NORMALIZED RATIO 3.39 (0.93-1.1)
[2019-01-14 06:03] LABS: BASOPHILS # (AUTO) 0.02 x10^3/uL (0-0.1); BASOPHILS % (AUTO) 0 % (0-1); EOSINOPHILS # (AUTO) 0.07 x10^3/uL (0-0.4); EOSINOPHILS % (AUTO) 1 % (1-7); LYMPHOCYTES # (AUTO) 0.89 x10^3/uL (1-3.4); LYMPHOCYTES % (AUTO) 12 % (22-44); MD NO; MEAN CORPUSCULAR HGB CONC 32.9 g/dL (33.2-36.2); MEAN CORPUSCULAR VOLUME 88.2 fL (81-97); MEAN PLATELET VOLUME 9.1 fL (7.4-10.4); MONOCYTES # (AUTO) 0.36 x10^3/uL (0.2-0.8); MONOCYTES % (AUTO) 5 % (2-9); NEUTROPHILS # (AUTO) 6.15 x10^3/uL (1.8-6.8); NEUTROPHILS % (AUTO) 82 % (42-75); PLATELET COUNT 368 x10^3/uL (130-400); RED BLOOD COUNT 3.16 x10^6/uL (4.38-5.82); RED CELL DISTRIBUTION WIDTH 16.6 % (9.4-14.8)
[2019-01-14 06:08] LABS: ANION GAP 5 mmol/L (5-15); CALCIUM 8.5 mg/dL (8.5-10.1); CHLORIDE 102 mmol/L (98-107); CREATININE 0.66 mg/dL (0.7-1.3)
[2019-01-14] MEDS: ALBUTEROL/IPRATROPIUM 2.5MG/0.5MG, 3 ML INLINE SCH ×4 (06:45→22:23)
[2019-01-14] MEDS: DOCUSATE 50 MG/5 ML, 10ML UDC PO SCH ×2 (09:00→22:00)
[2019-01-14] MEDS: FAMOTIDINE 20 MG/2 ML IVPush SCH ×2 (09:50→22:01)
[2019-01-14] MEDS: FUROSEMIDE 40 MG/4 ML IV SCH ×2 (09:50→22:01)
[2019-01-14] MEDS: POTASSIUM CHLORIDE 10% 20 MEQ/15 ML UDC PO SCH ×2 (09:50→22:00)
[2019-01-14] MEDS: ASPIRIN 81 MG TABLET CHEW PO SCH (09:51)
[2019-01-14] MEDS: CALCIUM CARBONATE 500 MG TAB.CHEW PO SCH ×3 (09:51→22:01)
[2019-01-14] MEDS: CLOPIDOGREL 75 MG TABLET PO SCH (09:51)
[2019-01-14] MEDS: LISINOPRIL 10 MG TABLET PO SCH ×2 (09:51→22:01)
[2019-01-14] MEDS: DIGOXIN 0.25 MG/ML, 2ML IVPush SCH (09:52)
[2019-01-14] MEDS: SODIUM CHLORIDE FLUSH 10ML SYR IVF SCH ×2 (09:53→21:00)
[2019-01-14] MEDS ORDERED: DEXMEDETOMIDINE 1,000 MCG in SODIUM CHLORIDE 0.9% 240 ML IV PRN (10:50)
[2019-01-14] MEDS ORDERED: LIDOCAINE-MPF 1%, 2ML ENDO PRN (11:00)
[2019-01-14] MEDS ORDERED: PHARMACY MAY ADJ FOR RENAL FX MC SCH (11:00)
[2019-01-14] MEDS ORDERED: ALBUTEROL/IPRATROPIUM 2.5MG/0.5MG, 3 ML INLINE SCH (11:00)
[2019-01-14] MEDS ORDERED: FENTANYL PF 100 MCG/2ML IVPush PRN (11:00)
[2019-01-14] MEDS: WARFARIN MODERAT DOSE PROTOCOL XX SCH (12:00)
[2019-01-14] MEDS ORDERED: FUROSEMIDE 20 MG/2 ML IV STA (14:56)
[2019-01-15] MEDS: CEFTAROLINE 600 MG in SODIUM CHLORIDE 0.9% 100 ML IV SCH (00:11)
[2019-01-15] MEDS: ALBUTEROL/IPRATROPIUM 2.5MG/0.5MG, 3 ML INLINE SCH ×4 (03:00→14:05)
[2019-01-15] MEDS: CARVEDILOL 6.25 MG TABLET PO SCH ×2 (04:58→17:22)
[2019-01-15] MEDS: MUPIROCIN OINT 2%, 22GM TP SCH (04:59)
[2019-01-15 06:15] LABS: BASOPHILS # (AUTO) 0.03 x10^3/uL (0-0.1); BASOPHILS % (AUTO) 1 % (0-1); EOSINOPHILS # (AUTO) 0.13 x10^3/uL (0-0.4); EOSINOPHILS % (AUTO) 2 % (1-7); LYMPHOCYTES # (AUTO) 1.07 x10^3/uL (1-3.4); LYMPHOCYTES % (AUTO) 20 % (22-44); MD NO; MEAN CORPUSCULAR HEMOGLOBIN 28.7 pg (27.5-34.5); MEAN CORPUSCULAR HGB CONC 32.6 g/dL (33.2-36.2); MONOCYTES # (AUTO) 0.32 x10^3/uL (0.2-0.8); MONOCYTES % (AUTO) 6 % (2-9); NEUTROPHILS # (AUTO) 3.92 x10^3/uL (1.8-6.8); NEUTROPHILS % (AUTO) 72 % (42-75); PLATELET COUNT 337 x10^3/uL (130-400); RED BLOOD COUNT 2.93 x10^6/uL (4.38-5.82); RED CELL DISTRIBUTION WIDTH 16.6 % (9.4-14.8)
[2019-01-15 06:20] LABS: INTERNATIONAL NORMALIZED RATIO 4.29 (0.93-1.1); PROTHROMBIN TIME 42.6 Seconds (9.6-11.5)
[2019-01-15 06:25] LABS: HCT (SEDRATE) 25.8 % (39.2-51.8)
[2019-01-15 06:26] LABS: ALANINE AMINOTRANSFERASE 28 U/L (12-78); ALBUMIN 2.2 g/dL (3.4-5.0); ANION GAP 5 mmol/L (5-15); CALCIUM 8.6 mg/dL (8.5-10.1); CHLORIDE 103 mmol/L (98-107); CREATININE 0.74 mg/dL (0.7-1.3)
[2019-01-15 06:33] LABS: ALKALINE PHOSPHATASE 177 U/L (45-117); BILIRUBIN,TOTAL 0.9 mg/dL (0.2-1.0); TOTAL PROTEIN 6.6 g/dL (6.4-8.2)
[2019-01-15] MEDS ORDERED: HOLD MEDICATION MC PRN (08:00)
[2019-01-15] MEDS: CLOPIDOGREL 75 MG TABLET PO SCH (09:15)
[2019-01-15] MEDS: CALCIUM CARBONATE 500 MG TAB.CHEW PO SCH ×2 (09:15→14:49)
[2019-01-15] MEDS: ASPIRIN 81 MG TABLET CHEW PO SCH (09:15)
[2019-01-15] MEDS: DOCUSATE 50 MG/5 ML, 10ML UDC PO SCH (09:15)
[2019-01-15] MEDS: LISINOPRIL 10 MG TABLET PO SCH (09:15)
[2019-01-15] MEDS: POTASSIUM CHLORIDE 10% 20 MEQ/15 ML UDC PO SCH (09:15)
[2019-01-15] MEDS: AMPICILLIN/SULBACTAM 1,500 MG in SODIUM CHLORIDE 0.9% 50 ML IV SCH ×2 (09:15→14:49)
[2019-01-15] MEDS: FUROSEMIDE 40 MG/4 ML IV SCH (09:15)
[2019-01-15] MEDS: FAMOTIDINE 20 MG/2 ML IVPush SCH (09:15)
[2019-01-15] MEDS: DIGOXIN 0.25 MG/ML, 2ML IVPush SCH (09:16)
[2019-01-15] MEDS: SODIUM CHLORIDE FLUSH 10ML SYR IVF SCH (09:16)
[2019-01-15] MEDS: METOCLOPRAMIDE 5 MG/ML, 2ML IV SCH ×2 (09:18→14:50)
[2019-01-15] MEDS: WARFARIN MODERAT DOSE PROTOCOL XX SCH (12:00)
[2019-01-15] MEDS ORDERED: METO5VIA30 IV (17:20)
[2019-01-15] MEDS ORDERED: Pharmacy May Adj For Renal Fx MC (17:20)
[2019-01-15] MEDS ORDERED: ACET325T14 PO (17:20)
[2019-01-15] MEDS ORDERED: ENAL1.2513 IV (17:20)
[2019-01-15] MEDS ORDERED: DOCU50LI12 PO (17:20)
[2019-01-15] MEDS ORDERED: MORP10VI10 IVPush (17:20)
[2019-01-15] MEDS ORDERED: FENT50VI IVPush (17:20)
[2019-01-15] MEDS ORDERED: FAMO20VI3 IVPush (17:20)
[2019-01-15] MEDS ORDERED: FILTER MICRON IV (17:20)
[2019-01-15] MEDS ORDERED: POTA20LI PO (17:20)
[2019-01-15] MEDS ORDERED: AMPI1.5V IVPush (17:20)
[2019-01-15] MEDS ORDERED: OXYC5TAB3 PO (17:20)
[2019-01-15] MEDS ORDERED: ONDA4VIA60 IVPush (17:20)
[2019-01-15] MEDS ORDERED: 0.92DISP2 IVF (17:20)
[2019-01-15] MEDS ORDERED: DEXT50DI3 IVPush (17:20)
[2019-01-15] MEDS ORDERED: CALC200T24 PO (17:20)
[2019-01-15] MEDS ORDERED: IPRA3AMP30 INLINE (17:20)
[2019-01-15] MEDS ORDERED: CLOP75TA PO (17:20)
[2019-01-15] MEDS ORDERED: CARV6.2512 PO (17:20)
[2019-01-15] MEDS ORDERED: [UNRECOGNIZED DRUG - REMARK] MC (17:20)
[2019-01-15] MEDS ORDERED: BISA10SU54 PR (17:20)
[2019-01-15] MEDS ORDERED: FURO10VI37 IV (17:20)
[2019-01-15] MEDS ORDERED: MUPI22OI2 TP (17:20)
[2019-01-15] MEDS ORDERED: ACET650S12 PR (17:20)
[2019-01-15] MEDS ORDERED: ASPI-515 PO (17:20)
[2019-01-15] MEDS ORDERED: LISI-167 PO (17:20)
[2019-01-15] MEDS ORDERED: DIGO125T PO (17:20)
[2019-01-15] MEDS ORDERED: LIDO10VI34 ENDO (17:20)
[2019-01-15] MEDS ORDERED: [UNRECOGNIZED DRUG - OTHER] XX (17:20)
[2019-01-15] MEDS ORDERED: TEMA15CA6 PO (17:20)
[2019-01-16] MEDS ORDERED: DIGOXIN 0.125 MG TABLET PO SCH (09:00)
[2019-01-16] MEDS ORDERED: FUROSEMIDE 40 MG/4 ML IV SCH (09:00)
== END 2019-01-15 18:10 | DRG 1 ==
LOC: 5SO 09:41 → CSU 14:05
PROVIDERS: ADMIT Thoracic Surgery (Cardiothoracic Vascular Surgery); ATTEND Thoracic Surgery (Cardiothoracic Vascular Surgery)
PROC: 021109W Bypass Coronary Artery, Two Arteries from Aorta with Autologous Venous Tissue, Open Approach (ICD-10-PCS; 2018-12-27)
PROC: 06BP4ZZ Excision of Right Saphenous Vein, Percutaneous Endoscopic Approach (ICD-10-PCS; 2018-12-27)
PROC: 5A1221Z Performance of Cardiac Output, Continuous (ICD-10-PCS; 2018-12-27)
PROC: 5A1955Z Respiratory Ventilation, Greater than 96 Consecutive Hours (ICD-10-PCS; 2018-12-27)
PROC: 02100Z9 Bypass Coronary Artery, One Artery from Left Internal Mammary, Open Approach (ICD-10-PCS; principal; 2018-12-27 13:30)
PROC: 5A02210 Assistance with Cardiac Output using Balloon Pump, Continuous (ICD-10-PCS; 2018-12-28)
PROC: 02HA0RZ Insertion of Short-term External Heart Assist System into Heart, Open Approach (ICD-10-PCS; 2018-12-29)
PROC: 5A0221D Assistance with Cardiac Output using Impeller Pump, Continuous (ICD-10-PCS; 2018-12-29)
PROC: 02PA0RZ Removal of Short-term External Heart Assist System from Heart, Open Approach (ICD-10-PCS; 2019-01-03)
PROC: 04QK0ZZ Repair Right Femoral Artery, Open Approach (ICD-10-PCS; 2019-01-03)
PROC: 0DH63UZ Insertion of Feeding Device into Stomach, Percutaneous Approach (ICD-10-PCS; 2019-01-10)
PROC: 0B9B8ZZ Drainage of Left Lower Lobe Bronchus, Via Natural or Artificial Opening Endoscopic (ICD-10-PCS; 2019-01-10)
PROC: 0B948ZZ Drainage of Right Upper Lobe Bronchus, Via Natural or Artificial Opening Endoscopic (ICD-10-PCS; 2019-01-10)
PROC: 0B988ZZ Drainage of Left Upper Lobe Bronchus, Via Natural or Artificial Opening Endoscopic (ICD-10-PCS; 2019-01-10)
PROC: 0B968ZZ Drainage of Right Lower Lobe Bronchus, Via Natural or Artificial Opening Endoscopic (ICD-10-PCS; 2019-01-10)
PROC: 0B113F4 Bypass Trachea to Cutaneous with Tracheostomy Device, Percutaneous Approach (ICD-10-PCS; 2019-01-10)
DX: I25.119 Atherosclerotic heart disease of native coronary artery with unspecified angina pectoris (principal); E43 Unspecified severe protein-calorie malnutrition; I21.4 Non-ST elevation (NSTEMI) myocardial infarction; G93.41 Metabolic encephalopathy; I63.9 Cerebral infarction, unspecified; D68.59 Other primary thrombophilia; E87.4 Mixed disorder of acid-base balance; G62.81 Critical illness polyneuropathy; I13.0 Hypertensive heart and chronic kidney disease with heart failure and stage 1 through stage 4 chronic kidney disease, or unspecified chronic kidney disease; I50.22 Chronic systolic (congestive) heart failure; D63.8 Anemia in other chronic diseases classified elsewhere; D69.6 Thrombocytopenia, unspecified; E66.9 Obesity, unspecified; E74.39 Other disorders of intestinal carbohydrate absorption; E78.00 Pure hypercholesterolemia, unspecified; E78.5 Hyperlipidemia, unspecified; E83.52 Hypercalcemia; I16.0 Hypertensive urgency; I25.5 Ischemic cardiomyopathy; I27.29 Other secondary pulmonary hypertension; I48.0 Paroxysmal atrial fibrillation; I49.3 Ventricular premature depolarization; I50.82 Biventricular heart failure; I25.2 Old myocardial infarction
CPT/HCPCS: 33990; 33992; 36415; 36600; 74018; J3490; J7620; S0017; 31624; 70553; 71045; 71046; 74177; 80048; 80053; 80162; 80202; 81001; 82330; 82800; 82803; 82810; 82947; 82962; 83036; 83540; 83550; 83735; 83880; 84132; 84295; 84478; 84484; 85014; 85018; 85025; 85049; 85347; 85520; 85610; 85651; 85730; 86022; 86140; 86850; 86900; 86923; 87040; 87070; 87081; 87086; 87102; 87205; 93005; 93306; 93312; 93321; 93325; 93970; 94002; 94003; 94640; A9585; B4087; C1760; C1769; G0378; J0171; J0690; J0697; J0712; J1644; J1756; J1815; J1940; J2250; J2260; J2405; J2543; J2704; J2720; J3010; J3370; J3475; J3480; J7120; P9045; P9047; Q9967; C1751; C1894; J0282; J0295; J1160; J1250; J2270; J2370; J2440; J2765; J7040; J7050; J7060

== ENCOUNTER → 2019-03-12 | Outpatient (CLI) | payer BC ==
[~2019-03-12] MED LIST changes: +0.92DISP2 IVF; +ACET325T14 PO; +ACET650S12 PR; +AMPI1.5V IVPush; +ASPI-515 PO; +BISA10SU54 PR; +CALC200T24 PO; +CARV6.2512 PO; +CLOP75TA PO; -DEXMEDETOMIDINE 200 MCG in SODIUM CHLORIDE 0.9% 48 ML IV SCH; +DEXT50DI3 IVPush; +DOCU50LI26 PO; +ENAL1.2513 IV; -EPINEPHRINE 2 MG in SODIUM CHLORIDE 0.9% 248 ML IV SCH; +FAMO20VI3 IVPush; +FENT50VI28 IVPush; +FILTER MICRON IV; +FURO10VI37 IV; +IPRA3AMP30 INLINE; +LIDO10VI34 ENDO; +LISI-167 PO; +METO5VIA30 IV; -METOPROLOL TARTRATE 25 MG TABLET PO ONE; +MORP10VI10 IVPush; +MUPI22OI2 TP; +ONDA4VIA60 IVPush; +OXYC5TAB3 PO; +POTA20LI PO; +Pharmacy May Adj For Renal Fx MC; +TEMA15CA6 PO; +[UNRECOGNIZED DRUG - OTHER] XX; +[UNRECOGNIZED DRUG - REMARK] MC
== END | disposition home or self-care (01) ==
LOC: CVU 06:50
PROVIDERS: ATTEND Nurse Practitioner Family
DX: I08.8 Other rheumatic multiple valve diseases (principal); I25.2 Old myocardial infarction; I10 Essential (primary) hypertension
CPT/HCPCS: 93306

== ENCOUNTER 2020-01-28 15:50 | Emergency (ER) | payer OTHER ==
[~2020-01-28] VITALS: Ht 180.3 cm; Wt 94.5 kg
[~2020-01-28 15:50] MED LIST changes: +APIX5TAB PO; +CARV3.1212 PO; -DIGO125T PO; +DIGO125T85 PO; +DOCU-131 PO; +NITR0.6T4 SL; -POTA20LI PO; +POTA20LI2 PO
--- NOTE | 2020-01-28 17:12 | NUR ---
[employer]IE[employer]ATIVE OFFICER: PT AMBULATORY WITH STEADY GAIT TO ROOM AT THIS TIME. MAGNOLIA
[2020-01-28 17:52] LABS: BASOPHILS # (AUTO) 0.05 x10^3/uL (0-0.1); BASOPHILS % (AUTO) 1 % (0-1); EOSINOPHILS # (AUTO) 0.21 x10^3/uL (0-0.4); EOSINOPHILS % (AUTO) 3 % (1-7); LYMPHOCYTES # (AUTO) 2.36 x10^3/uL (1-3.4); LYMPHOCYTES % (AUTO) 36 % (22-44); MD NO; MEAN CORPUSCULAR HEMOGLOBIN 30.1 pg (27.5-34.5); MEAN CORPUSCULAR HGB CONC 33.8 g/dL (33.2-36.2); MEAN CORPUSCULAR VOLUME 89.1 fL (81-97); MEAN PLATELET VOLUME 9.4 fL (7.4-10.4); MONOCYTES # (AUTO) 0.58 x10^3/uL (0.2-0.8); MONOCYTES % (AUTO) 9 % (2-9); NEUTROPHILS % (AUTO) 52 % (42-75); PLATELET COUNT 197 x10^3/uL (130-400); RED BLOOD COUNT 4.77 x10^6/uL (4.38-5.82); RED CELL DISTRIBUTION WIDTH 14.7 % (9.4-14.8)
[2020-01-28 18:00] LABS: ALANINE AMINOTRANSFERASE 20 U/L (12-78); ALBUMIN 3.6 g/dL (3.4-5.0); ANION GAP 8 mmol/L (5-15); CHLORIDE 107 mmol/L (98-107)
[2020-01-28 18:03] LABS: ALKALINE PHOSPHATASE 81 U/L (45-117); BILIRUBIN,TOTAL 0.5 mg/dL (0.2-1.0); CREATININE 1.01 mg/dL (0.7-1.3); TOTAL PROTEIN 7.7 g/dL (6.4-8.2)
[2020-01-28 18:27] VITALS: BP 138/72
== END 2020-01-28 18:34 | disposition home or self-care (01) ==
LOC: ED 18:15
DX: M79.651 Pain in right thigh (principal); R10.2 Pelvic and perineal pain; I25.810 Atherosclerosis of coronary artery bypass graft(s) without angina pectoris; Z87.891 Personal history of nicotine dependence
CPT/HCPCS: 36415; 76857; 80053; 83605; 85025; 93005; 99285

== ENCOUNTER → 2020-02-22 | Outpatient (CLI) | payer OTHER ==
[~2020-02-22] MED LIST changes: +OMNIPAQUE 350 MG/ML, 100ML BOTTLE ONE
== END | disposition home or self-care (01) ==
LOC: CFH 10:50
PROVIDERS: ATTEND Thoracic Surgery (Cardiothoracic Vascular Surgery)
DX: R10.30 Lower abdominal pain, unspecified (principal)
CPT/HCPCS: 72191; Q9967